=== PATIENT | female | born 1945 | race Caucasian/White ===

== ENCOUNTER → 2016-08-05 | Outpatient (CLI) | payer MEDICARE ==
[~2016-08-05] MED LIST: AMOXICILLIN 8751 TAB PO; ASPIRIN 81M81 MG/TA2 PO; CALCIUM 500500 M2 PO; CEFTIN 250250 MG/TAB PO; COUMADIN 5MG5 MG/TAB PO; EPA/GLA1 SGL PO; FERROUS SU325 MG/TAB PO; FISH OIL 1000MG1 CAP PO; FOLIC ACID 40400 MCG PO; GLUCOPHAGE850 MG/TAB PO; HYZAAR 25 MG-101 TAB PO; LOFIBRA160 MG PO; LOPRESSOR100 MG PO; NORCO 325 MG-51 TAB PO; NORCO 325 MG-7.1 TAB PO; PERCR 7.5 PO; ULTRAM 50MG TAB50 MG PO; VITAMIN B121000 MC2 SL; VITAMIN C500 MG PO; XANAX .25M0.25 MG/TA PO; ZOCOR 40MG40 MG PO; ZOFRAN 4MG T4 MG/TAB PO
== END ==
LOC: MC.RAD 10:20
DX: Z12.31 Encounter for screening mammogram for malignant neoplasm of breast (principal)

== ENCOUNTER → 2017-09-01 | Outpatient (CLI) | payer MEDICARE | LOC: MC.RAD 10:46 | DX: Z12.31 Encounter for screening mammogram for malignant neoplasm of breast (principal) ==

== ENCOUNTER → 2018-09-02 | Outpatient (CLI) | payer MEDICARE | LOC: MC.RAD 15:13 | DX: Z12.31 Encounter for screening mammogram for malignant neoplasm of breast (principal) ==

== ENCOUNTER 2019-05-31 08:49 | Day surgery (SDC) | payer MEDICARE ==
[~2019-05-31] VITALS: Ht 165.1 cm; Wt 90.9 kg
[~2019-05-31 08:49] MED LIST changes: +COUMADIN4 MG PO
[2019-05-31] MEDS ORDERED: XANAX .25M0.25 MG/TA PO (09:13)
[2019-05-31 09:42] VITALS: BP 158/93; PULSE 80; TEMP 97.3
[2019-05-31 10:50] VITALS: BP 162/86; PULSE 68; TEMP 97.1
--- NOTE | 2019-05-31 10:50 | NUR ---
Patient arrives back to [facility] alert, denies pain. Patient ambulates from cart to chair using wheel walker without any difficulties. Patient monitor applied, vitals stable. Patient's spouse at bedside.
--- NOTE | 2019-05-31 11:00 | NUR ---
Patient given juice and muffin at this time. Patient is able to swallow well and denies having any difficulties.
[2019-05-31 11:05] VITALS: BP 163/81; PULSE 57
[2019-05-31 11:20] VITALS: BP 164/85; PULSE 65
--- NOTE | 2019-05-31 11:30 | NUR ---
Patient tolerates juice and muffin without any nausea, denies pain.
[2019-05-31 11:35] VITALS: BP 148/62; PULSE 67
--- NOTE | 2019-05-31 11:50 | NUR ---
Patient up to restroom at this time via wheelwalker and without any complications or difficulties.
[2019-05-31] MEDS ORDERED: PRIL40 PO (12:09)
--- NOTE | 2019-05-31 12:20 | NUR ---
Dismissal instructions gone over with patient and patient's spouse. Both verbalize understanding and all questions answered.
--- NOTE | 2019-05-31 12:30 | NUR ---
Patient discharged to patient enterance via wheelchair to private vehicle her spouse is driving. Patient and spouse leave thanking staff for services.
[2019-05-31 13:18] VITALS: BP 162/86; PULSE 63
== END 2019-05-31 12:30 | disposition home or self-care (01) ==
LOC: SDCO 08:49
DX: K20.9 Esophagitis, unspecified (principal); K29.50 Unspecified chronic gastritis without bleeding; K25.9 Gastric ulcer, unspecified as acute or chronic, without hemorrhage or perforation; K22.4 Dyskinesia of esophagus; K57.10 Diverticulosis of small intestine without perforation or abscess without bleeding; Z86.010 Personal history of colon polyps; Z88.5 Allergy status to narcotic agent; Z88.2 Allergy status to sulfonamides; E78.00 Pure hypercholesterolemia, unspecified; I10 Essential (primary) hypertension; Z90.710 Acquired absence of both cervix and uterus; Z90.49 Acquired absence of other specified parts of digestive tract; Z95.5 Presence of coronary angioplasty implant and graft
CPT/HCPCS: J2250; J3010; J7030

== ENCOUNTER 2020-04-23 07:34 | Emergency (ER) | payer MEDICARE ==
[~2020-04-23] VITALS: Ht 165.1 cm; Wt 75.0 kg
[~2020-04-23 07:34] MED LIST changes: +PRIL40 PO
[2020-04-23 07:35] VITALS: TEMP 97.6
[2020-04-23 08:18] LABS: BASO % 0.3 % (0.0-2.0); EOS % 0.5 % (0-4.0); GRAN # 2.3 (1.4-6.5); GRAN % 60.3 % (42.2-75.2); HEMOGLOBIN 12.3 g/dl (12.5-16.0); LYMPH # 1.2 (1.2-3.4); LYMPH % 30.9 % (20.0-51.0); MEAN CELL VOLUME 84 fl (80.0-100.0); MEAN CORPUSCULAR HEMOGLOBIN 28 pg (27.0-31.0); MEAN CORPUSCULAR HGB CONC 34 g/dl (33.0-37.0); MONO # 0.3 (0.1-0.6); MONO % 7.2 % (1.7-9.3); PLATELET COUNT 165 K/mm3 (130-400); RED BLOOD COUNT 4.37 M/mm3 (4.10-5.30); REDCELL DISTRIBUTION WIDTH-CV 15.2 % (11.5-14.5)
[2020-04-23 08:19] LABS: HEMATOCRIT 36.5 % (37.0-47.0)
[2020-04-23 08:28] LABS: CALCIUM 9.5 mg/dL (8.4-10.2); CREATININE, serum 0.68 (0.52-1.25); POTASSIUM 3.2 mmol/L (3.4-5.0); TOTAL PROTEIN 7.1 gm/dL (6.4-8.2)
[2020-04-23 08:40] LABS: INR 6.8 (0.8-3.0); PROTHROMBIN TIME 77.4 SECONDS (9.7-12.8)
[2020-04-23 08:42] LABS: COLLECTION METHOD CLEAN CATCH
[2020-04-23 09:24] LABS: MUCOUS Present /lpf; PH 7 (5-8); SQUAMOUS EPITHELIAL 0-2 /hpf; URINE APPEARANCE Hazy; URINE BACTERIA Moderate /hpf; URINE BILIRUBIN Negative (NEGATIVE); URINE BLOOD 1+ (NEGATIVE); URINE COLOR Yellow; URINE GLUCOSE Negative (NEGATIVE); URINE KETONE Negative (NEGATIVE); URINE LEUKOCYTE ESTERASE 2+ (NEGATIVE); URINE NITRATE Negative (NEGATIVE); URINE PROTEIN(semi-quant) 2+ (NEGATIVE); URINE UROBILINOGEN Negative (NEGATIVE)
[2020-04-23 09:49] VITALS: BP 147/65; PULSE 86
== END 2020-04-23 10:00 | disposition short-term general hospital (02) ==
LOC: COL.ER 07:34
PROVIDERS: Emergency Medicine
DX: S06.6X0A Traumatic subarachnoid hemorrhage without loss of consciousness, initial encounter (principal); S80.02XA Contusion of left knee, initial encounter; S80.01XA Contusion of right knee, initial encounter; R40.2410 Glasgow coma scale score 13-15, unspecified time; I48.91 Unspecified atrial fibrillation; Z79.01 Long term (current) use of anticoagulants; Z88.2 Allergy status to sulfonamides; Z88.6 Allergy status to analgesic agent; Z79.82 Long term (current) use of aspirin; Z79.84 Long term (current) use of oral hypoglycemic drugs; W01.10XA Fall on same level from slipping, tripping and stumbling with subsequent striking against unspecified object, initial encounter; Y92.009 Unspecified place in unspecified non-institutional (private) residence as the place of occurrence of the external cause
CPT/HCPCS: C9132; J0696; J2060; J3430; J3480

== ENCOUNTER → 2020-05-08 | Outpatient (CLI) | payer MEDICARE | LOC: ZCOL.LAB 18:07 | DX: Z20.828 Contact with and (suspected) exposure to other viral communicable diseases (principal) ==

== ENCOUNTER → 2020-05-14 | Outpatient (CLI) | payer MEDICARE ==
[2020-05-15 02:05] LABS: COLLECTION METHOD CLEAN CATCH
[2020-05-15 02:16] LABS: MUCOUS Present /lpf; PH 5 (5-8); SQUAMOUS EPITHELIAL 0-2 /hpf; URINE APPEARANCE Clear; URINE BACTERIA None Seen /hpf; URINE BILIRUBIN Negative (NEGATIVE); URINE BLOOD Negative (NEGATIVE); URINE COLOR Yellow; URINE GLUCOSE Negative (NEGATIVE); URINE KETONE Negative (NEGATIVE); URINE LEUKOCYTE ESTERASE Negative (NEGATIVE); URINE NITRATE Negative (NEGATIVE); URINE PROTEIN(semi-quant) 1+ (NEGATIVE); URINE RBC 0-2 /hpf; URINE UROBILINOGEN Negative (NEGATIVE)
== END ==
LOC: ZCOL.LAB 21:01
PROVIDERS: Family Medicine
DX: R30.9 Painful micturition, unspecified (principal); R35.0 Frequency of micturition

== ENCOUNTER 2021-02-12 08:46 | Inpatient (IN) | payer MEDICARE ==
[~2021-02-12] VITALS: Ht 165.1 cm; Wt 78.8 kg
[2021-02-12 09:45] LABS: EOS % 0.8 % (0-4.0); GRAN # 1.7 (1.4-6.5); GRAN % 64.8 % (42.2-75.2); HEMOGLOBIN 11.7 g/dl (12.5-16.0); LYMPH # 0.7 (1.2-3.4); LYMPH % 25.9 % (20.0-51.0); MEAN CELL VOLUME 86 fl (80.0-100.0); MEAN CORPUSCULAR HEMOGLOBIN 28 pg (27.0-31.0); MEAN CORPUSCULAR HGB CONC 32 g/dl (33.0-37.0); MEAN PLATELET VOLUME 10.9 fl (7.4-10.4); MONO # 0.2 (0.1-0.6); MONO % 8.1 % (1.7-9.3); PLATELET COUNT 164 K/mm3 (130-400); RED BLOOD COUNT 4.24 M/mm3 (4.10-5.30)
[2021-02-12 09:46] LABS: HEMATOCRIT 36.6 % (37.0-47.0)
[2021-02-12 09:50] LABS: INR 1.1 (0.8-3.0); PROTHROMBIN TIME 12.7 SECONDS (9.7-12.8)
[2021-02-12 09:54] LABS: ALBUMIN 3.8 gm/dL (3.5-5.0); BILIRUBIN,TOTAL 0.6 mg/dL (0.0-1.0); CALCIUM 9.1 mg/dL (8.4-10.2); CREATININE, serum 0.86 (0.52-1.25); POTASSIUM 3.6 mmol/L (3.4-5.0); TOTAL PROTEIN 7.6 gm/dL (6.4-8.2)
[2021-02-12] MEDS ORDERED: NORVASC 10MG10 MG PO (12:16)
[2021-02-12] MEDS ORDERED: BENADRYL25 M2 PO (12:17)
[2021-02-12] MEDS ORDERED: LOFIBRA160 MG PO (12:18)
[2021-02-12] MEDS ORDERED: DULCOLAX STOOL100 MG PO (12:18)
[2021-02-12] MEDS ORDERED: COZAAR100 MG PO (12:19)
[2021-02-12] MEDS ORDERED: NATURAL IRON65 MG (12:19)
[2021-02-12] MEDS ORDERED: LASIX 40MG TABL40 MG PO (12:19)
[2021-02-12] MEDS ORDERED: GLUCOPHAGE850 MG/TAB PO (12:20)
[2021-02-12] MEDS ORDERED: LIPITOR 10MG10 MG PO (12:21)
[2021-02-12] MEDS ORDERED: TYLENOL 500MG500 MG PO (12:21)
[2021-02-12] MEDS ORDERED: B-12 500 MCG PO (12:21)
[2021-02-12] MEDS ORDERED: VITAMINC1000TA (12:22)
[2021-02-12 12:27] LABS: COLLECTION METHOD IN
[2021-02-12 12:40] LABS: MUCOUS Present /lpf; PH 6 (5-8); URINE APPEARANCE Hazy; URINE BACTERIA None Seen /hpf; URINE BILIRUBIN Negative (NEGATIVE); URINE BLOOD Negative (NEGATIVE); URINE COLOR Yellow; URINE GLUCOSE Negative (NEGATIVE); URINE KETONE Negative (NEGATIVE); URINE LEUKOCYTE ESTERASE 1+ (NEGATIVE); URINE NITRATE Negative (NEGATIVE); URINE PROTEIN(semi-quant) 1+ (NEGATIVE); URINE RBC 0-2 /hpf; URINE UROBILINOGEN Negative (NEGATIVE)
[2021-02-12 15:49] VITALS: BP 140/70; PULSE 73; TEMP 97.9
[2021-02-12 15:52] LABS: ANION GAP 13 mmol/L (7-16); BLOOD UREA NITROGEN 24 mg/dL (7-17); CALCIUM 9.3 mg/dL (8.4-10.2); CARBON DIOXIDE 22 mmol/L (22-30); CHLORIDE 103 mmol/L (98-107); CREATININE, serum 0.76 (0.52-1.25); GLUCOSE 99 mg/dL (74-106); POTASSIUM 4.2 mmol/L (3.4-5.0); SODIUM 139 mmol/L (137-145)
[2021-02-12 15:59] VITALS: BP 133/75; PULSE 89; TEMP 97.8
[2021-02-12 16:04] LABS: TROPONIN-I < 0.012 ng/mL (0.000-0.035)
[2021-02-12 17:34] VITALS: BP 139/72; PULSE 81; TEMP 97.8
[2021-02-12 19:41] LABS: CHOLESTEROL 92 mg/dL (120-200); CHOLESTEROL RISK RATIO 2.7; CREATINE KINASE 23 U/L (30-135); HDL CHOLESTEROL 34 mg/dL; LDL CHOLESTEROL 42 mg/dL; TRIGLYCERIDE 82 mg/dL
--- NOTE | 2021-02-12 20:29 | NUR ---
Resting quietly in room, daughter at bedside - updated on NPO status and failed bedside swallow test, updated on Speech therapy consult- verbalized understanding, reviewed medications with exhibitions curator DISTILLERY WORKER and failed swallow study - Hold po medications at this time. updated patient and family on plan of care. telemetry in use, weakness noted to L side, tolerating room air.
[2021-02-12 20:32] VITALS: BP 145/71; PULSE 76; TEMP 98.5
[2021-02-12 22:52] VITALS: BP 137/49; BP 137/57; PULSE 67; TEMP 98.7
--- NOTE | 2021-02-13 00:49 | NUR ---
Patient bsl 66- Call placed to Manjula Phillip See new orders, to clarify Manjula requested to hang D10W @ 50ml per hour and recheck blood sugar in 30 min and 1 hour and monitor. Updated patient on new orders.
[2021-02-13 03:12] VITALS: BP 141/65; PULSE 72; TEMP 98.2
--- NOTE | 2021-02-13 04:58 | NUR ---
Awake, alert, oriented x 4, able to verbalize needs, no facial droop noted, assisted with bedpan, denies pain, no acute distress noted.
--- NOTE | 2021-02-13 07:14 | NUR ---
Pt. progresing with plan of care. Bedside shift report complete. Pt. alert and able to answer questions. Pt. able to put both of her hearing aids in both ears. Pt. NPO. Pt. able to let this RN know she needs to use the bedpan. Will put pt. on bedpan now. All other questions answered.
[2021-02-13 07:24] LABS: BASO % 0.3 % (0.0-2.0); EOS % 0.6 % (0-4.0); GRAN # 1.4 (1.4-6.5); GRAN % 44.3 % (42.2-75.2); HEMOGLOBIN 11.1 g/dl (12.5-16.0); LYMPH # 1.4 (1.2-3.4); LYMPH % 44.6 % (20.0-51.0); MEAN CELL VOLUME 87 fl (80.0-100.0); MEAN CORPUSCULAR HEMOGLOBIN 28 pg (27.0-31.0); MEAN CORPUSCULAR HGB CONC 32 g/dl (33.0-37.0); MEAN PLATELET VOLUME 11.4 fl (7.4-10.4); MONO # 0.3 (0.1-0.6); MONO % 9.9 % (1.7-9.3); PLATELET COUNT 148 K/mm3 (130-400); RED BLOOD COUNT 3.99 M/mm3 (4.10-5.30); REDCELL DISTRIBUTION WIDTH-CV 16.1 % (11.5-14.5)
[2021-02-13 07:28] LABS: HEMATOCRIT 34.5 % (37.0-47.0)
[2021-02-13 08:40] VITALS: BP 128/52; PULSE 73; TEMP 99
[2021-02-13 11:46] VITALS: BP 141/84; PULSE 94; TEMP 97.6
--- NOTE | 2021-02-13 11:52 | NUR ---
SW's met with the patient and her daughter, Rosaura Cordero (ph#[phone]), to discuss discharge plan. The patient lives in [place] with her two sons: Shahid Hua and Anam. She reports needing some assistance with bathing and has a walker and showerchair. Rosaura states that she assists the patient with bathing. The patient's PCP is Dr. Sukhi Witt and she receives her medications [facility]. She reports no difficulties obtaining her meds. The patient does not have a DPOA-HC in EMR, but she states that she does have one completed and that it designates Rosaura. Rosaura reports that she has a copy at home and will bring it up to the hospital this afternoon. The patient's is and she has four children: Rosaura, Anam. Shahid Hua, and Nargis. PT is recommending SNF. SW discussed this with the patient and Rosaura. The patient and her daughter are in agreement to SNF and chose 1) [facility] 2) [facility]. The patient states that she has been to [facility] three times in the past. SW contacted and faxed a referral to Mariam at [facility]. SHAY consulted Mojgan with [facility]. The patient has a [facility] plan. SHAY contacted Luc at [facility] for prior-auth. Luc reports that they do not manage the patient's plan. SW notified Mariam at [facility]. Awaiting screens. *Discharge plan post-acute rehab*
--- NOTE | 2021-02-13 12:13 | NUR ---
Pt. progressing w/ plan of care. Pt able to eat and drink after speech came to see the patient. Pt. worked w/ therapy and HR was elevated. Pt. was not given metoprolol last night and given later today because she was NPO. Dr. Lacey notified face to face and aware. Social work in to see the patient. Daughter at bedside. Lunch has arrived, call light and belongings in reach.
--- NOTE | 2021-02-13 14:19 | NUR ---
Hospital supplied silver ointment applied to patient's stage II pressure sore. Pt. reports pain in her back, pt. placed on her side with good relief. Call light in reach, needs addressed.
[2021-02-13 17:23] VITALS: BP 140/68; PULSE 75; TEMP 98.6
--- NOTE | 2021-02-13 19:00 | NUR ---
Stroke education provided to patient and her daughter. Bedside shift report complete, oncoming RN Guadalupe notified of plan of care and updates on the patient have been provided. Call light in reach.
[2021-02-13 21:11] VITALS: BP 134/70; PULSE 81; TEMP 98.5
[2021-02-14] VITALS (7 sets, daily range): BP systolic 126–150; BP diastolic 56–78; PULSE 61–76; TEMP 97.7–97.9
--- NOTE | 2021-02-14 10:57 | NUR ---
Scheduled medication given. Shift assessment preformed. Patient able to lift and hold upper and lower extremities. Left hand space operations officer weaker than right. Mild dysarthia noted. Patient A&O. VSS. Stage 2 pressure ulcer noted on patient's sacral area, patient repositioned to right side. Patient denies any pain, discomfort, SOA, Chest pain, or further needs at this time. Call light in reach. Fall precautions in place.
--- NOTE | 2021-02-14 13:56 | NUR ---
Mariam, at [facility], reports that they do not have a bed available at this time. SHAY notified [facility] Director, Mojgna. SHAY met with the patient and her daughter, Rosaura, to update. The patient and her daughter report that they would be interested in [facility]. They state that they would probably prefer [facility], if they can take, for the more open visitation policy. SHAY contacted and faxed a referral to [facility]. Awaiting screen.
--- NOTE | 2021-02-14 18:35 | NUR ---
Patient had an uneventful day. Patient A&O. VSS. Patient denies any pain, discomfort, or further needs at this time. Call light in reach. Fall precautions in place. Patient waiting for placement.
[2021-02-15 04:04] VITALS: BP 130/60; PULSE 60; TEMP 97.8
--- NOTE | 2021-02-15 06:30 | NUR ---
Patient was upset during the night because she keeps having nightmares. She wanted to speak with the brain doctor about taking a medication to stop them. She has been voiding 2-3 times an hour. She voids about 200-300ml each time. She is not drinking an excessive amount of water. She refuse to lay on her left side. She did not sleep much during the night. No other changes at this time. Call light within reach. Bed alarm on.
[2021-02-15] MEDS ORDERED: PLAVIX 75MG TAB75 MG PO (08:49)
[2021-02-15] MEDS ORDERED: XANAX .25M0.25 MG/TA PO (08:51)
[2021-02-15] MEDS ORDERED: PROTONIX 40MG T40 MG PO (08:52)
[2021-02-15 09:11] VITALS: BP 149/77; PULSE 59; TEMP 98.1
--- NOTE | 2021-02-15 09:39 | NUR ---
Shift assessment preformed. Scheduled medication given. Patient A&O. Left tire shop manager weaker than right. Bed bath given, linens changed. Patient has been C/O nightmares over night and has experienced some while drifting off during this shift. Patient denies any pain, discomfort, SOA, or further needs at this time. Patient sitting up in bed eating breakfast. Daughter at the bedside. Call light in reach. Fall precautions in place.
[2021-02-15 12:00] VITALS: BP 142/80; PULSE 69
--- NOTE | 2021-02-15 13:09 | NUR ---
The hospitalist notified SHAY that he is ready to d/c the patient today. SHAY contacted Nima at [facility] to follow up on the referral. Nima reports that they are still reviewing the referral. SHAY informed [facility] how the patient is ready to d/c today. [facility] states that they will not have an answer until later this afternoon and if they are able to accept, they would not be able to take the patient until tomorrow. SHAY met with the patient and her daughter, Rosaura, to update. The patient and Rosaura are in agreement to going ahead and pursuing with [facility]. SHAY notified [facility] Director. Mojgan, [facility] Director, reports that the patient's insurance does not require and auth and they are able to accept the patient today. The patient is to discharge today, 02/15, to [facility]. No additional needs at this time.
[2021-02-15 14:27] VITALS: BP 149/77; PULSE 59; TEMP 98.1
--- NOTE | 2021-02-15 15:12 | NUR ---
Patient accepted to [facility]. IV DC'd, catheter intact, no signs of phlebitis. VSS. Report given to ZORAN Rocha. Patient denies any pain, discomfort, SOA, or further needs at this time. Patient transported over to [facility] via wheelchair by SIDRA Becker.
== END 2021-02-15 15:00 | DRG 66 ==
LOC: COL.ER 08:46 → MEDICAL 13:15
PROVIDERS: Emergency Medicine; ADMIT Internal Medicine
DX: I63.89 Other cerebral infarction (principal); E78.5 Hyperlipidemia, unspecified; I48.0 Paroxysmal atrial fibrillation; E66.9 Obesity, unspecified; M19.90 Unspecified osteoarthritis, unspecified site; M79.7 Fibromyalgia; I25.10 Atherosclerotic heart disease of native coronary artery without angina pectoris; E11.40 Type 2 diabetes mellitus with diabetic neuropathy, unspecified; Z87.820 Personal history of traumatic brain injury; Z90.710 Acquired absence of both cervix and uterus; Z90.89 Acquired absence of other organs; Z79.82 Long term (current) use of aspirin; Z90.49 Acquired absence of other specified parts of digestive tract; Z68.31 Body mass index [BMI] 31.0-31.9, adult
CPT/HCPCS: 99222-AI; 99232-AI; 99239; A6248; J2405; J7030; Q9967

== ENCOUNTER 2021-02-15 12:53 | Inpatient (IN) | payer MEDICARE ==
[~2021-02-15] VITALS: Ht 165.1 cm; Wt 68.2 kg
[~2021-02-15 12:53] MED LIST changes: +B-12 500 MCG PO; +BENADRYL25 M2 PO; +COZAAR100 MG PO; +DULCOLAX STOOL100 MG PO; +LASIX 40MG TABL40 MG PO; +LIPITOR 10MG10 MG PO; +NATURAL IRON65 MG; +NORVASC 10MG10 MG PO; +PLAVIX 75MG TAB75 MG PO; +PROTONIX 40MG T40 MG PO; +TYLENOL 500MG500 MG PO; +VITAMINC1000TA
[2021-02-15 17:10] VITALS: BP 148/86; PULSE 70; TEMP 98.1
[2021-02-15 19:32] VITALS: BP 156/73; PULSE 86; TEMP 97.7
--- NOTE | 2021-02-15 19:40 | NUR ---
PATIENT ALERT AND ORIENTED X4. ON NO APPARENT DISTRESS. ASSISTED PATIENT TO BR WITH WALKER AND STAND BY ASSIST, GAIT SLOW AND STEADY. NO SOB NOTED. PATIENT DENIES ANY DISCOMFORT AT THIS TIME. VSS. PM MEDICATION GIVEN. BED LOW AND LOCKED. BED ALARM ON. CALL LIGHT WITHIN REACH.
[2021-02-16 06:14] VITALS: BP 152/74; PULSE 65; TEMP 98.7
--- NOTE | 2021-02-16 06:30 | NUR ---
Report received from ZORAN Pham. Patient is resting comfortably in bed. Call light and bedside table are within reach. Will continue to monitor patient throughout shift.
--- NOTE | 2021-02-16 10:55 | NUR ---
Welcomed pt to Rehab unit. Explained the rehab process & goals. Complete SW assessment w/ pt. She is alert & oriented & able to communicate her needs & wants; however, is sometimes difficult to understand due to slurred speech. She does not wear dentures, wears readers, & wears bilateral hearing aides. She lives w/ her sons in a 1 story home w/ 6 step & a basement. However, the plan is for her to go home w/ her daughter, Rosaura. Her home is 1 story w/ 3 steps down & has bilateral handrails. The bathroom has a tub/shower combo w/ curtain but no grab bars. The toilet is taller & pt has a toilet seat riser. Pt reports she walks w/ a 4/2/walker & independent w/ her self care. She also reported doing her own cooking, some housekkeping, shopping, medication management & finance management. She has her own r/walker, 4/w/walker, shower chair, & toilet seat riser. Pharmacy: Reports she usually uses mail order but when she can't she uses [facility] & reports she has no concerns or issues w/ affording her medications. PCP: Dr. Farooq. She does have DPOA her daughter designated at [facility] but doesn't know if she brought the paperwork in or not. Pt had no questions/concerns at this time about her rehab stay. SW will continue to provide support & assist w/ d/c planning.
--- NOTE | 2021-02-16 14:56 | NUR ---
Patient has completed all therapies for the day and is relaxing in bed. Call light and bedside table are within reach.
[2021-02-16 17:53] VITALS: BP 152/68; PULSE 96; TEMP 97.2
[2021-02-16 19:39] VITALS: BP 154/80; PULSE 76; TEMP 97.6
--- NOTE | 2021-02-16 21:26 | NUR ---
Pt has been good. Daughter Visited today. Pain rated 0/10. Will continue to monitor.
[2021-02-17 08:00] VITALS: BP 110/72; PULSE 93; TEMP 98.4
[2021-02-17 12:00] VITALS: BP 126/72; PULSE 59; TEMP 98.4
[2021-02-17 16:00] VITALS: BP 129/57; PULSE 62; TEMP 98.4
[2021-02-17 19:29] VITALS: BP 143/79; PULSE 93; TEMP 98.1
--- NOTE | 2021-02-17 21:53 | NUR ---
Pt has been ok. Pain rated 0/10.Vss. Will continue to monitor.
[2021-02-18 04:59] VITALS: BP 137/71; PULSE 61; TEMP 98.5
--- NOTE | 2021-02-18 08:07 | NUR ---
Patient resting in recliner. Was a Touch assist with transferring from bed to BSC and then to recliner. Patient denies pain at this time. Bottom healed over at this time. No stage II observed or stage I. Will continue to monitor.
[2021-02-18 17:07] VITALS: BP 140/68; PULSE 72; TEMP 98.3
--- NOTE | 2021-02-18 18:35 | NUR ---
Patient's daughter stopped by to visit her mother and they asked this nurse if there could be a change to the evening seroquel due to it making her so drowsy in the morning. See new order for a 1/2 tab at HS. Will continue to monitor.
[2021-02-18 19:29] VITALS: BP 149/61; PULSE 89; TEMP 98.1
--- NOTE | 2021-02-18 21:32 | NUR ---
Pt has been in good spirit. Pain rated 0/10. Will continue to monitor.
[2021-02-19 05:09] VITALS: BP 140/67; PULSE 80; TEMP 98.1
--- NOTE | 2021-02-19 06:30 | NUR ---
Report received from ZORAN Pham. Patient is sleeping in bed. Call light and bedside table are within reach. Will continue to monitor patient throughout shift.
[2021-02-19 07:59] LABS: BASO % 0.2 % (0.0-2.0); EOS # 0.1 (0.0-0.7); EOS % 1.3 % (0-4.0); GRAN # 2.1 (1.4-6.5); GRAN % 46.3 % (42.2-75.2); HEMATOCRIT 41.8 % (37.0-47.0); HEMOGLOBIN 13.4 g/dl (12.5-16.0); LYMPH % 43.6 % (20.0-51.0); MEAN CELL VOLUME 88 fl (80.0-100.0); MEAN CORPUSCULAR HEMOGLOBIN 28 pg (27.0-31.0); MEAN CORPUSCULAR HGB CONC 32 g/dl (33.0-37.0); MEAN PLATELET VOLUME 10.9 fl (7.4-10.4); MONO # 0.4 (0.1-0.6); MONO % 8.2 % (1.7-9.3); PLATELET COUNT 202 K/mm3 (130-400); RED BLOOD COUNT 4.76 M/mm3 (4.10-5.30); REDCELL DISTRIBUTION WIDTH-CV 16.6 % (11.5-14.5)
[2021-02-19 08:43] LABS: CALCIUM 9.1 mg/dL (8.4-10.2); CREATININE, serum 0.93 (0.52-1.25); MAGNESIUM 1.7 mg/dL (1.6-2.3); POTASSIUM 4.3 mmol/L (3.4-5.0)
--- NOTE | 2021-02-19 13:20 | NUR ---
Admission QIM scores were reviewed by the team. Code of 4 chosen for oral hygiene was determined by team discussion to be the most usual performance before interventions for this patient during the assessment period. Code of 2 chosen for toilet hygiene was determined by team discussion to be the most usual performance for this patient during the assessment period. Code of 3 chosen for upper body dressing was determined by team discussion to be the most usual performance for this patient during the assessment period. Code of 2 chosen for lower body dressing was determined by team discussion to be the most usual performance for this patient during the assessment period. Code of 3 chosen for sit to lying was determined by team discussion to be the most usual performance for this patient during the assessment period. Code of 3 chosen for lying to sitting on side of bed was determined by team discussion to be the most usual performance for this patient during the assessment period. Code of 3 for sit to stand was determined by team discussion to be the most usual performance for this patient during the assessment period. Code of 6 for chair/bed to chair transfers was determined by team discussion to be the most usual performance for this patient during the assessment period.--Mojgan Zamarripa,
--- NOTE | 2021-02-19 16:23 | NUR ---
Patient has completed all therapies for the day and is resting in recliner. Patient denies pain but stated her neck hurts but did not want anything for it. Call light and bedside table are within reach.
[2021-02-19 18:04] VITALS: BP 148/65; PULSE 75; TEMP 98.7
[2021-02-20 05:08] VITALS: BP 122/65; PULSE 67; TEMP 97.4
--- NOTE | 2021-02-20 07:05 | NUR ---
Report received from ZORAN Harrell. Patient is relaxing in bed. Call light and bedside table are within reach. Will continue to monitor patient throughout shift.
[2021-02-20 18:25] VITALS: BP 150/83; PULSE 93; TEMP 98.2
--- NOTE | 2021-02-20 19:25 | NUR ---
RECEIVED CHANGE OF SHIFT REPORT FROM DAY SHIFT NURSE.
--- NOTE | 2021-02-20 20:30 | NUR ---
PATIENT REFUSES SCD. BED ALARM ON WHEN IN BED, CALL LIGHT WITHIN REACH. GAIT STEADY BUT WEAK AND SLOW GAIT, USES WALKER WITHOUT REPORTED PROBLEMS.
--- NOTE | 2021-02-21 01:00 | NUR ---
PATIENT SLEEPING, DOES NOT WAKE WHEN ROOM ENTERED BY STAFF. BED ALARM ON WHEN SLEEPING, CALL LIGHT WITHIN REACH. BREATHING NONLABORED AND EVEN.
[2021-02-21 04:32] VITALS: BP 147/63; PULSE 104; TEMP 98
--- NOTE | 2021-02-21 07:16 | NUR ---
CHANGE OF SHIFT REPORT GIVEN TO DAY SHIFT NURSE, RADHA MEEHAN.
--- NOTE | 2021-02-21 11:19 | NUR ---
Patient attended all morning therapies. She reported some bilateral shoulder pain and was given prn pain meds with good effect. Pepe currently working with ST at this time. Takes pills whole with water. Denies any questions. Will continue to monitor.
--- NOTE | 2021-02-21 12:42 | NUR ---
Patient currently resting in recliner, call light in reach and alarm set. She is eating her lunch and awaiting for her afternoon therapies. Denies questions at this time.
--- NOTE | 2021-02-21 15:11 | NUR ---
Reviewed team conference notes w/ pt. She stated she understood & agreed w/ current level of functioning. Informed her of d/c for 02/27/21, w/ recommendations of home health PT/OT. She told SW that she has had home health in the past & inquired who that was. She told SW [facility] & inquired if she would like to use them again, which she would. Told her the team would like to do a family meeting & that SW would be contacting her daughter, which she was fine w/. Pt had no questions or concerns at this time. Contact pt's daughter, Rosaura. Reviewed the team conference notes w/ her & she agreed that pt is doing well. Informed her of d/c for 02/27/21 w/ recommendation of home health PT/OT. Did inquire about whether the pt would be going to pt's home or daughter's home. She stated for now it would be pt's home until her home was ready. Verfied that pt's home has 6 steps to enter, which it does. Also inquired about doing a family meeting & she said she could do one on 02/26/21 at 1:00 pm. She did not have any questions or conerns at this time.
[2021-02-21 16:41] VITALS: BP 149/76; PULSE 76; TEMP 97.3
--- NOTE | 2021-02-21 17:40 | NUR ---
Patient resting in her recliner at this time eating her supper. She received her order for voltaron to help with pain management.
--- NOTE | 2021-02-21 18:49 | NUR ---
RECEIVED CHANGE OF SHIFT REPORT FROM DAY SHIFT NURSE. CALL LIGHT WITHIN REACH, BED ALARM ON WHEN IN BED.
--- NOTE | 2021-02-22 02:03 | NUR ---
PATIENT SLEEPING AND DOES NOT WAKE WHEN ROOM IS ENTERED BY STAFF ON ROUNDS AT THIS TIME. BED ALARM ON WITH CALL LIGHT WITHIN REACH. PATIENT HAS BEEN ABLE TO AMBULATE TO AND FROM BATHROOM WITH SBA WITH GAIT BELT/WALKER ASSISTANCE. REQUIRES SOME ASSIST WITH REMOVAL OF UNDERPANTS/PANTS WHEN SITTING DURING TOILETING WHEN CHANGE SOILED GARMENTS/ADULT PULLUPS. SPEECH CLEAR AND APPROPRIATE DURING CONVERSATION WITH THIS STAFF NURSE.
[2021-02-22 05:41] VITALS: BP 140/59; PULSE 68; TEMP 97.2
--- NOTE | 2021-02-22 06:54 | NUR ---
CHANGE OF SHIFT REPORT GIVEN TO DAY SHIFT NURSE, RADHA MEEHAN.
--- NOTE | 2021-02-22 11:17 | NUR ---
Received call from pt's daughter, Rosaura, asking if the family meeting could be changed to tomorrow, 02/23/21 & if pt's other daughter, Nargis, could be present. Received permission from nurse load manager for pt's daughter, Nargis, to come in for the family meeting. Called Rosaura back & informed her that Nargis can come in tomorrow for the family meeting & scheduled it for 1:30.
--- NOTE | 2021-02-22 11:26 | NUR ---
Patient is currently attending Group Therapy at this time. She was a one person touch assist from sit to stand this morning and was touch assist with ambulating with walker to and from the bathroom. Patient tolerated diet well this morning. Denies pain reporting that the Voltaren that she used on shoulders yesterday was very helpful. Will continue to monitor.
[2021-02-22 16:01] VITALS: BP 116/67; PULSE 59; TEMP 97.8
--- NOTE | 2021-02-22 18:54 | NUR ---
RECEIVED CHANGE OF SHIFT REPORT FROM DAY SHIFT NURSE. PATIENT RESTING IN BED WITH BED ALARM ON WITH CALL LIGHT WITHIN REACH. DAUGHTER AT BEDSIDE AT TIME OF REPORT.
--- NOTE | 2021-02-22 19:24 | NUR ---
Patient attended her afternoon therapies today. Tolerated diet well. Was a set up for putting her night gown on tonight. She was able to wipe herself and pull pants up and down with only touch assist. She denied need for pain meds through day. Patient currently resting in bed, call light in reach and bed alarm set. Reported off to night nurse.
--- NOTE | 2021-02-22 20:33 | NUR ---
REPORTS SOME BLE STIFFNESS WITH WALKING, AGREED TO TAKE PRN TYLENOL, REFUSED OFFER OF VOLTAREN GEL FOR SHOULDERS AT THIS TIME, REMINDED PATIENT TO ASK FOR GEL IF SHE STARTS TO HAVE SHOULDER DISCOMFORT DURING THE NIGHT. BED ALARM ON WHEN BACK IN BED WITH CALL LIGHT WITHIN REACH. DENIES CHEST PAIN,SOA OR INCREASED BLE NUMBNESS (HAS H.O. CHRONIC NEUROPATHY TO BLE).
[2021-02-23 03:56] VITALS: BP 131/61; PULSE 53; TEMP 98
--- NOTE | 2021-02-23 07:10 | NUR ---
CHANGE OF SHIFT REPORT GIVEN TO DAY SHIFT NURSE, CLAUDIA MEEHAN.
--- NOTE | 2021-02-23 13:40 | NUR ---
Conducted family meeting w/ pt, daughter (Nargis) & via phone daughter (Rosaura). Also present was the PT, OT, & SW/news library director. The team talked about how pt has been doing & any concerns. The family asked questions, which the team answered for them. Informed them of d/c still for 02/27/21, w/ recommendation for home health PT/OT. They were fine w/ the plan.
[2021-02-23 16:10] VITALS: BP 146/78; PULSE 82; TEMP 97.6
--- NOTE | 2021-02-23 21:00 | NUR ---
PT RESTING IN BED. A&OX4. PLEASANT AND COPPERATIVE. DENIES PAIN AT THIS TIME. PT VERBALIZES HX URINARY URGENCY FOR YEARS. HAS STRESS INCONTINENCE. WEARS BRIEFS WITH PADS. NO NEEDS AT THIS TIME. CALL LIGHT IN REACH. BED ALARM SET.
[2021-02-24 04:49] VITALS: BP 152/96; PULSE 78; TEMP 97.4
--- NOTE | 2021-02-24 05:33 | NUR ---
QUIET UNEVENTFUL NIGHT. UP TO BR SEVERAL TIMES IN HS. SOME INCONTINECE IN BRIEFS THIS AM.
--- NOTE | 2021-02-24 07:04 | NUR ---
Report received from ZORAN Marino. Patient is sleeping in bed. Call light and bedside table are within reach. Will continue to monitor patient throughout shift.
--- NOTE | 2021-02-24 10:20 | NUR ---
Patient did not participate in group therapy because only four patients could participate. SIDRA Becker walked the patient in the hallways. Patient is resting comfortably in recliner. Call light and bedside table are within reach.
--- NOTE | 2021-02-24 16:30 | NUR ---
Patient's daughter is visiting.
[2021-02-24 18:00] VITALS: BP 134/83; PULSE 96; TEMP 97.4
--- NOTE | 2021-02-24 20:46 | NUR ---
PT RESTING IN BED. MOD I IN ROOM. ENC PT TO CALL FOR ASSIST IF NEEDED FOR SAFETY. PT AGREED. CALL LIGHT IN REACH.
[2021-02-25 04:50] VITALS: BP 124/56; PULSE 76; TEMP 97.3
--- NOTE | 2021-02-25 06:39 | NUR ---
PT TOLERATED MOD I SAFELY THIS SHIFT. UNEVENTFUL NIGHT.
--- NOTE | 2021-02-25 06:48 | NUR ---
Report received from ZORAN Marino. Patient is sleeping in bed. Call light and bedside table are within reach. Will continue to monitor patient throughout shift.
--- NOTE | 2021-02-25 09:15 | NUR ---
Patient went down to [place] to visit with his and son.
--- NOTE | 2021-02-25 10:40 | NUR ---
Went into patient's room to check on her and she was in the bathroom changing her clothes. Patient stated she had an incident of incontinence. Patient cleaned herself and changed her clothes.
--- NOTE | 2021-02-25 11:20 | NUR ---
Patient walker < 150 feet with walker, gait belt and with SIDRA Becker. Patient is currently back in room and sitting in recliner. Call light and bedside table are within reach.
--- NOTE | 2021-02-25 17:04 | NUR ---
Patient's daughter is visiting with her
[2021-02-25 17:12] VITALS: BP 135/85; PULSE 64; TEMP 97.6
--- NOTE | 2021-02-25 17:59 | NUR ---
Patient's daughter has left for the evening
--- NOTE | 2021-02-25 19:41 | NUR ---
PT RESTING IN BED. MOD I IN ROOM. PT REPORTS DOING WELL WITH THIS. NO CONCERNS OR COMPLAINTS. CALL LIGHT IN REACH.
[2021-02-26 05:04] VITALS: BP 136/77; PULSE 67; TEMP 98.5
--- NOTE | 2021-02-26 08:00 | NUR ---
Patient sitting up in bed eating a cookie. A&Ox4. VSS. Denies pain and discomfort. Doesnt want to take scheduled am medication yet. States that she feels a little nauseous and doesnt want the medication to come back up. Patient states that she will call the nurse when ready. No further needs expressed. Call light within reach
--- NOTE | 2021-02-26 11:00 | NUR ---
Contacted [facility] & spoke w/ Donovan. Referral made for home health PT/OT/nursing w/ d/c on 02/27/21. Faxed referral information.
[2021-02-26] MEDS ORDERED: VOLTAREN GEL 1%1 TU TP (13:51)
[2021-02-26] MEDS ORDERED: PLAVIX 75MG TAB75 MG PO (13:54)
[2021-02-26] MEDS ORDERED: ASPIRIN 81M81 MG/TA2 PO (13:56)
--- NOTE | 2021-02-26 14:07 | NUR ---
Visited w/ pt about d/c for tomorrow, 02/27/21. She stated she is ready to go home. Inquired how she has been doing w/ being Mod I in her room & she stated she has had no problems. Told her that [facility] was contacted & will be picking her up for services. She did not have any other questions or concerns at this time.
[2021-02-26 16:06] VITALS: BP 134/68; PULSE 74; TEMP 97.6
--- NOTE | 2021-02-26 17:57 | NUR ---
Patient had an uneventful day. Independent in the room and tolerated therapy without difficulty. A&Ox3. VSS. Denies pain and discomfort. Indpendent with feeds. No further needs expressed. Call light within reach
--- NOTE | 2021-02-26 18:54 | NUR ---
RECEIVED CHANGE OF SHIFT REPORT FROM DAY SHIFT NURSE. PATIENT UP AD BRAD IN ROOM WITH NO REPORTED CONCERNS OR PROBLEMS, NO EXIT ALARM IS NEEDED. PATIENT DENIES ANY NEEDS AT THIS TIME.
--- NOTE | 2021-02-27 00:30 | NUR ---
PATIENT UP IN ROOM AD BRAD WITH NO REPORTED PROBLEMS OR CONCERNS. USES WALKER WHEN UP WITH NO DIFFICULTY. CALL LIGHT WITHIN REACH. DENIES ANY DISCOMFORT OR NEEDS AT THIS TIME, SLEEPING AND DOES NOT WAKE WHEN ROOM ENTERED BY STAFF ON ROUNDS.
[2021-02-27 05:26] VITALS: BP 133/68; PULSE 56; TEMP 97.2
--- NOTE | 2021-02-27 07:18 | NUR ---
CHANGE OF SHIFT REPORT GIVEN TO DAY SHIFT NURSE, RADHA MEEHAN.
--- NOTE | 2021-02-27 09:19 | NUR ---
Patients daughter will be picking up patient at 2 PM today. She is independent in her room with her walker. Denies pain. Tolerated diet well. Will continue to monitor.
--- NOTE | 2021-02-27 09:32 | NUR ---
Visited w/ pt. She did not have any questions or concerns about her d/c. She did state that her daughter, Nargis, is not able to come get her until 2:00 pm. Faxed the home health orders & D/C summary to [facility].
--- NOTE | 2021-02-27 14:50 | NUR ---
Patient Health Summary, Discharge Summary, and Home Meds printed and reviewed with patient. Stressed importance of follow up appointments. Called prescription in for Pantoprazole to pharmacy of choice. Belongings gathered by RN/Jossie including phone, head athletic trainer/strength coach, voltaran ointment, dirty clothes from hamper and other misc. personal items. Patient transported via wheelchair by RN/Jossie and seatbelted for ride home with daughter. Patient and daughter denied questions.
== END 2021-02-27 14:35 | disposition home health service (06) | DRG 57 ==
PROVIDERS: ADMIT Internal Medicine
DX: I69.351 Hemiplegia and hemiparesis following cerebral infarction affecting right dominant side (principal); R44.3 Hallucinations, unspecified; I48.0 Paroxysmal atrial fibrillation; E11.42 Type 2 diabetes mellitus with diabetic polyneuropathy; I10 Essential (primary) hypertension; I25.10 Atherosclerotic heart disease of native coronary artery without angina pectoris; M79.7 Fibromyalgia; M19.90 Unspecified osteoarthritis, unspecified site; G47.00 Insomnia, unspecified; E66.9 Obesity, unspecified; E78.5 Hyperlipidemia, unspecified; Z79.82 Long term (current) use of aspirin; Z79.84 Long term (current) use of oral hypoglycemic drugs; Z95.5 Presence of coronary angioplasty implant and graft; Z90.710 Acquired absence of both cervix and uterus; Z88.2 Allergy status to sulfonamides; Z88.6 Allergy status to analgesic agent
CPT/HCPCS: 99222-AI; 99231-AI; 99232-AI; 99239; J1815

== ENCOUNTER 2021-04-17 16:35 | Observation (INO) | payer MEDICARE ==
[~2021-04-17] VITALS: Ht 165.1 cm; Wt 80.5 kg
[~2021-04-17 16:35] MED LIST changes: +VOLTAREN GEL 1%1 TU TP
[2021-04-17 18:15] LABS: BASO % 0.3 % (0.0-2.0); EOS % 1.2 % (0-4.0); GRAN # 1.6 K/mm3 (1.4-6.5); GRAN % 46.9 % (42.2-75.2); HEMATOCRIT 42.3 % (37.0-47.0); HEMOGLOBIN 13.5 g/dl (12.5-16.0); LYMPH # 1.4 K/mm3 (1.2-3.4); LYMPH % 42.3 % (20.0-51.0); MEAN CELL VOLUME 89 fl (80.0-100.0); MEAN CORPUSCULAR HEMOGLOBIN 29 pg (27.0-31.0); MEAN CORPUSCULAR HGB CONC 32 g/dl (33.0-37.0); MEAN PLATELET VOLUME 11.5 fl (7.4-10.4); MONO # 0.3 K/mm3 (0.1-0.6); PLATELET COUNT 174 K/mm3 (130-400); RED BLOOD COUNT 4.73 M/mm3 (4.10-5.30); REDCELL DISTRIBUTION WIDTH-CV 17.7 % (11.5-14.5)
[2021-04-17 18:19] LABS: INR 1.2 (0.8-3.0); PROTHROMBIN TIME 13.2 SECONDS (9.7-12.8)
[2021-04-17 18:48] LABS: ALBUMIN 3.2 gm/dL (3.4-4.8); BILIRUBIN,TOTAL 1.1 mg/dL (0.2-1.2); C-REACTIVE PROTEIN 0.6 mg/dL (0.00-0.50); CALCIUM 9.3 mg/dL (8.4-10.2); CREATININE, serum 0.96 mg/dL (0.57-1.11); TOTAL PROTEIN 7.3 gm/dL (6.2-8.1)
[2021-04-17 18:53] LABS: TROPONIN-I 0.03 ng/mL (0.00-0.033)
[2021-04-17 19:08] LABS: COLLECTION METHOD CLEAN CATCH
[2021-04-17 19:20] LABS: MUCOUS Present /lpf; PH 5 (5-8); SQUAMOUS EPITHELIAL None Seen /hpf; URINE APPEARANCE Clear; URINE BACTERIA None Seen /hpf; URINE BILIRUBIN Negative (NEGATIVE); URINE BLOOD 1+ (NEGATIVE); URINE COLOR Yellow; URINE GLUCOSE Negative (NEGATIVE); URINE KETONE Negative (NEGATIVE); URINE LEUKOCYTE ESTERASE Negative (NEGATIVE); URINE NITRATE Negative (NEGATIVE); URINE PROTEIN(semi-quant) 3+ (NEGATIVE); URINE RBC >50 /hpf; URINE UROBILINOGEN >=4.0 mg/dL (NEGATIVE)
[2021-04-17] MEDS ORDERED: GLUCOPHAGE500 MG/TAB PO (20:18)
[2021-04-17] MEDS ORDERED: COZAAR 50MG50 MG/TAB PO (20:18)
[2021-04-17 23:44] VITALS: BP 145/80; PULSE 55; TEMP 98.4
--- NOTE | 2021-04-18 01:02 | NUR ---
PT ARRIVED TO MEDICAL FLOOR AT 2325 VIA STRETCHER BY ED STAFF TO ROOM 319, PT A/OX4, VSS, 02 ROOM AIR WITH SATURATIONS OVER 95 PERCENT. PT DENIES PAIN BUT REPORTS NEUROPATHIC S/S TO BLE. PHYSICAL ASSESMENT COMPLETE, MED REC COMPLETE AND PT ENCOURAGED TO HAVE DAUGHTER BRING MEDICATION LIST TO MAKE COPY AND INPUT IN CHART, PT VERBALIZES UNDERSTANDING. PT ORIENTED TO FLOOR AND HOSPITAL POLICY. PT EXPRESSES NO ADDITIONAL NEEDS AT THIS TIME. CALL LIGHT WITHIN REACH.
[2021-04-18 04:34] VITALS: BP 147/89; PULSE 83; TEMP 98.3
--- NOTE | 2021-04-18 06:06 | NUR ---
PT HAD UNEVENTFUL NIGHT, PT DENIES SOA,PAIN,N,V, REPORTS DIAHHREA BUT HAS HAD NO BM'S. PUREWICK IN PLACE. SCD'S ON. POC DISCUSSED WITH PT. PT VERBALIZES UNDERSTANDING. CALL LIGHT WITHIN REACH.
--- NOTE | 2021-04-18 06:41 | NUR ---
CARDIOLOGY CONSULT TO DR. WILLIS CONTACTED AT 0640 COMPLETE.
--- NOTE | 2021-04-18 07:00 | NUR ---
Report with ZORAN Hudson. Pt resting in bed, awake and alert with student nurse and lab at bedside. Call light in reach.
[2021-04-18 07:30] VITALS: BP 143/73; PULSE 50; TEMP 97.5
[2021-04-18 07:43] LABS: BASO % 0.3 % (0.0-2.0); EOS # 0.1 K/mm3 (0.0-0.7); EOS % 1.6 % (0-4.0); GRAN # 1.8 K/mm3 (1.4-6.5); GRAN % 50.2 % (42.2-75.2); LYMPH # 1.4 K/mm3 (1.2-3.4); LYMPH % 38.6 % (20.0-51.0); MEAN CELL VOLUME 88 fl (80.0-100.0); MEAN CORPUSCULAR HEMOGLOBIN 29 pg (27.0-31.0); MEAN CORPUSCULAR HGB CONC 33 g/dl (33.0-37.0); MEAN PLATELET VOLUME 11.1 fl (7.4-10.4); MONO # 0.3 K/mm3 (0.1-0.6); PLATELET COUNT 156 K/mm3 (130-400); RED BLOOD COUNT 4.54 M/mm3 (4.10-5.30); REDCELL DISTRIBUTION WIDTH-CV 17.3 % (11.5-14.5)
[2021-04-18 07:58] LABS: CALCIUM 9.1 mg/dL (8.4-10.2); CREATININE, serum 0.85 mg/dL (0.57-1.11); POTASSIUM 3.5 mmol/L (3.5-4.5)
[2021-04-18 08:07] LABS: TROPONIN-I 6 HR POST INITIAL 0.035 ng/mL (0.00-0.033)
[2021-04-18] MEDS ORDERED: VOLTAREN GEL 1%1 TU TP (09:56)
[2021-04-18] MEDS ORDERED: GLUCOPHAGE850 MG/TAB PO (09:58)
[2021-04-18] MEDS ORDERED: LOTRISONE 0.05%1 CRE TOP (10:00)
--- NOTE | 2021-04-18 10:25 | NUR ---
Initial visit; Patient thanked Computer Training Specialist for looking in on her and offering spiritual care. Patient requested that Computer Training Specialist keep her in her prayers. Computer Training Specialist will follow up while Doris is a patient here.
--- NOTE | 2021-04-18 10:57 | NUR ---
Assessment by student nurse reviewed and agreed by this nurse.
[2021-04-18 11:21] VITALS: BP 142/65; PULSE 82; TEMP 97.6
--- NOTE | 2021-04-18 15:06 | NUR ---
Computer Service Technician met with patient at bedside to discuss discharge planning. Patient states she lives in [place] and 2 of her sons live with her. Patient states she is in the process of selling her house since it is becoming too much for her. Per patient, she is in the process of moving in with her daughter, Rosaura ([phone]) who lives in [place]. Her daughter is also listed as her MPOA according to the patient, although it is not on file. PCP is Dr. Sukhi Witt and she receives her medications through mail order and through [facility]. She uses a walker for mobility and she also has a shower chair. Patient states that she has been getting a home health aide to help her out occasionally at her home but she isn't sure which agency. SW will continue to follow for patient needs. *D/C Plan: Skilled rehab
[2021-04-18 17:03] VITALS: BP 148/77; PULSE 78; TEMP 97.7
--- NOTE | 2021-04-18 18:00 | NUR ---
Pt sitting up in bed, eating dinner, requesting blanket and tissues, otherwise uneventful shift. Purewick in place, no s/s of complications. Call light in reach.
[2021-04-18 20:22] VITALS: BP 149/88; PULSE 56; TEMP 98
[2021-04-18 20:28] VITALS: PULSE 101
[2021-04-19] VITALS: BP 141/94; PULSE 96; TEMP 97.7
[2021-04-19 05:05] VITALS: BP 120/93; PULSE 53; TEMP 98.4
--- NOTE | 2021-04-19 05:24 | NUR ---
Pt had trouble sleeping overnight, Medication administered as ordered to assist with reported anxiety. Purewick remains in place, draining and patent. Pt I&O noted and recorded. Pt denies SOA,n,v,d. All needs met this night. Call light within reach.
[2021-04-19 06:45] LABS: BASO % 0.2 % (0.0-2.0); EOS # 0.1 K/mm3 (0.0-0.7); EOS % 1.5 % (0-4.0); GRAN # 2.5 K/mm3 (1.4-6.5); GRAN % 52.8 % (42.2-75.2); HEMATOCRIT 39.5 % (37.0-47.0); HEMOGLOBIN 12.5 g/dl (12.5-16.0); LYMPH # 1.8 K/mm3 (1.2-3.4); LYMPH % 37.2 % (20.0-51.0); MEAN CELL VOLUME 90 fl (80.0-100.0); MEAN CORPUSCULAR HEMOGLOBIN 29 pg (27.0-31.0); MEAN CORPUSCULAR HGB CONC 32 g/dl (33.0-37.0); MEAN PLATELET VOLUME 11.2 fl (7.4-10.4); MONO # 0.4 K/mm3 (0.1-0.6); MONO % 8.1 % (1.7-9.3); PLATELET COUNT 143 K/mm3 (130-400); RED BLOOD COUNT 4.37 M/mm3 (4.10-5.30); REDCELL DISTRIBUTION WIDTH-CV 17.5 % (11.5-14.5)
[2021-04-19 07:02] LABS: CALCIUM 8.7 mg/dL (8.4-10.2); CREATININE, serum 0.98 mg/dL (0.57-1.11); MAGNESIUM 1.4 mg/dL (1.6-2.6); POTASSIUM 3.4 mmol/L (3.5-4.5)
[2021-04-19 07:31] VITALS: BP 124/82; PULSE 59; TEMP 97.8
[2021-04-19] MEDS ORDERED: LASIX 20MG TABL20 MG PO (09:32)
[2021-04-19] MEDS ORDERED: K-DUR 10 MEQ T10 MEQ PO (09:33)
--- NOTE | 2021-04-19 13:36 | NUR ---
Follow-up visit; Patient thanked Title I Paraprofessional for looking in on her again and hopes to be discharged soon. Title I Paraprofessional offered Doris God's blessings.
[2021-04-19 13:40] VITALS: BP 133/80; PULSE 84; TEMP 98
--- NOTE | 2021-04-19 14:02 | NUR ---
Primary nurse was assisted with [phone] patient care by [facility] student Amber Hyde and [facility] instructor Lynda Benito MSN, RN
[2021-04-19 15:45] VITALS: BP 128/72; PULSE 83; TEMP 98.2
--- NOTE | 2021-04-19 16:44 | NUR ---
Manager Package reviewed PT/OT recommendation for Home with Home Health. SW contacted patient's daughter, Rosaura to review discharge plan. Rosaura advised that patient uses [facility]. Rosaura reports that patient is in the process of moving in with her, but right now just stays overnight with her. Rosaura is agreeable with discharge plan to home with home health. SHAY contacted Angela at [facility] and faxed referral/discharge orders. Discharge: Home with [facility]
--- NOTE | 2021-04-19 18:27 | NUR ---
Patient discharged and was escorted out by Oskar, via wheelchair. IV was discontinued and purewick was removed. Patient did not have any complaints upon discharge.
== END 2021-04-19 18:30 | disposition home health service (06) ==
LOC: COL.ER 16:35 → MEDICAL 21:41
PROVIDERS: Nurse Practitioner Primary Care; Personal Emergency Response Attendant; Physician Assistant; Student in an Organized Health Care Education/Training Program; ADMIT Student in an Organized Health Care Education/Training Program
DX: J90 Pleural effusion, not elsewhere classified (principal); R63.5 Abnormal weight gain; I08.1 Rheumatic disorders of both mitral and tricuspid valves; E83.42 Hypomagnesemia; I48.0 Paroxysmal atrial fibrillation; I10 Essential (primary) hypertension; E11.40 Type 2 diabetes mellitus with diabetic neuropathy, unspecified; E78.5 Hyperlipidemia, unspecified; K21.9 Gastro-esophageal reflux disease without esophagitis; I27.20 Pulmonary hypertension, unspecified; F41.9 Anxiety disorder, unspecified; Z90.710 Acquired absence of both cervix and uterus; Z20.822 Contact with and (suspected) exposure to COVID-19; Z79.02 Long term (current) use of antithrombotics/antiplatelets; Z90.89 Acquired absence of other organs; Z86.73 Personal history of transient ischemic attack (TIA), and cerebral infarction without residual deficits; Z90.49 Acquired absence of other specified parts of digestive tract; Z79.82 Long term (current) use of aspirin; Z79.84 Long term (current) use of oral hypoglycemic drugs; Z79.899 Other long term (current) drug therapy
CPT/HCPCS: 99232-AI; 99239; G0378; J1940; J3475

== ENCOUNTER 2021-04-28 17:34 | Inpatient (IN) | payer MEDICARE ==
[~2021-04-28] VITALS: Ht 165.1 cm; Wt 76.9 kg
[~2021-04-28 17:34] MED LIST changes: +COZAAR 50MG50 MG/TAB PO; +GLUCOPHAGE500 MG/TAB PO; +K-DUR 10 MEQ T10 MEQ PO; +LASIX 20MG TABL20 MG PO; +LOTRISONE 0.05%1 CRE TOP
[2021-04-28 18:04] LABS: BASO % 0.2 % (0.0-2.0); EOS % 0.1 % (0-4.0); GRAN # 7.4 K/mm3 (1.4-6.5); GRAN % 75.1 % (42.2-75.2); HEMATOCRIT 43.4 % (37.0-47.0); HEMOGLOBIN 14.1 g/dl (12.5-16.0); LYMPH # 1.8 K/mm3 (1.2-3.4); LYMPH % 17.9 % (20.0-51.0); MEAN CELL VOLUME 88 fl (80.0-100.0); MEAN CORPUSCULAR HEMOGLOBIN 29 pg (27.0-31.0); MEAN CORPUSCULAR HGB CONC 33 g/dl (33.0-37.0); MEAN PLATELET VOLUME 11.5 fl (7.4-10.4); MONO # 0.6 K/mm3 (0.1-0.6); MONO % 6.3 % (1.7-9.3); PLATELET COUNT 213 K/mm3 (130-400); RED BLOOD COUNT 4.95 M/mm3 (4.10-5.30); REDCELL DISTRIBUTION WIDTH-CV 17.4 % (11.5-14.5)
[2021-04-28 18:22] LABS: ALBUMIN 3.4 gm/dL (3.4-4.8); BILIRUBIN,TOTAL 1.9 mg/dL (0.2-1.2); CALCIUM 9.7 mg/dL (8.4-10.2); CREATININE, serum 1.3 mg/dL (0.57-1.11); POTASSIUM 4.1 mmol/L (3.5-4.5); TOTAL PROTEIN 8.2 gm/dL (6.2-8.1)
[2021-04-28 18:29] LABS: TROPONIN-I 0.048 ng/mL (0.00-0.033)
[2021-04-28 18:47] LABS: INR 1.2 (0.8-3.0); PROTHROMBIN TIME 13.8 SECONDS (9.7-12.8)
[2021-04-28 18:54] LABS: ARTERIAL BLD GAS O2 SATURATION 94.7 % (92-100); ARTERIAL BLD GAS TCO2 CT 25.6; ARTERIAL BLOOD GAS BASE EXCESS 2.2 (-2-2); ARTERIAL BLOOD GAS HCO3 24.6 meq/L (22-26); ARTERIAL BLOOD GAS PCO2 31.8 mmHg (35-45); ARTERIAL BLOOD GAS PO2 70.9 mmHg (80-100); ARTERIAL BLOOD GAS pH 7.51 (7.35-7.45)
[2021-04-28] MEDS ORDERED: K-DUR20 MEQ PO (22:35)
[2021-04-28] MEDS ORDERED: XANAX .25M0.25 MG/TA PO (22:35)
[2021-04-28] MEDS ORDERED: LASIX 40MG TABL40 MG PO (22:36)
[2021-04-28] MEDS ORDERED: PROTONIX 40MG T40 MG PO (22:37)
[2021-04-28 23:54] VITALS: BP 126/79; PULSE 105; TEMP 98.4
[2021-04-29 02:09] LABS: COLLECTION METHOD CATHETER
[2021-04-29 02:15] LABS: MUCOUS Present /lpf; PH 5 (5-8); SQUAMOUS EPITHELIAL 0-2 /hpf; URINE APPEARANCE Clear; URINE BACTERIA Rare /hpf; URINE BILIRUBIN Negative (NEGATIVE); URINE BLOOD Negative (NEGATIVE); URINE COLOR Yellow; URINE GLUCOSE Negative (NEGATIVE); URINE KETONE Negative (NEGATIVE); URINE LEUKOCYTE ESTERASE Negative (NEGATIVE); URINE NITRATE Negative (NEGATIVE); URINE PROTEIN(semi-quant) Negative (NEGATIVE); URINE RBC 0-2 /hpf; URINE UROBILINOGEN Negative (NEGATIVE)
[2021-04-29 03:40] LABS: BASO % 0.2 % (0.0-2.0); GRAN # 9.1 K/mm3 (1.4-6.5); GRAN % 84.7 % (42.2-75.2); HEMATOCRIT 37.9 % (37.0-47.0); HEMOGLOBIN 12.6 g/dl (12.5-16.0); LYMPH # 0.9 K/mm3 (1.2-3.4); LYMPH % 8.7 % (20.0-51.0); MEAN CELL VOLUME 86 fl (80.0-100.0); MEAN CORPUSCULAR HEMOGLOBIN 29 pg (27.0-31.0); MEAN CORPUSCULAR HGB CONC 33 g/dl (33.0-37.0); MEAN PLATELET VOLUME 11.7 fl (7.4-10.4); MONO # 0.6 K/mm3 (0.1-0.6); MONO % 5.7 % (1.7-9.3); PLATELET COUNT 171 K/mm3 (130-400)
[2021-04-29 03:58] LABS: CALCIUM 9.2 mg/dL (8.4-10.2); CREATININE, serum 1.05 mg/dL (0.57-1.11); MAGNESIUM 1.5 mg/dL (1.6-2.6); PHOSPHOROUS 2.8 mg/dL (2.3-4.7)
[2021-04-29 04:16] VITALS: BP 114/54; PULSE 92; TEMP 97.7
[2021-04-29 04:19] LABS: THYROID STIMULATING HORMONE 0.858 uIU/mL (0.350-4.940)
[2021-04-29 04:32] LABS: TROPONIN-I 0.061 ng/mL (0.00-0.033)
[2021-04-29 07:52] VITALS: BP 123/51; PULSE 77; TEMP 97.9
--- NOTE | 2021-04-29 09:15 | NUR ---
PT PLEASANT, AOX4, ATE 90% OF BREAKFAST, REPORTS PAIN IN BLE, RLE ULCERS WERE DRESSED, WILL CHANGE DRESSING LATER IN SHIFT, ASSESSMENT PERFORMED, MEDICATIONS GIVEN, VITALS REVIEWED, CALL LIGHT WITHIN REACH, NO OTHER NEEDS AT THIS TIME
[2021-04-29 12:15] VITALS: BP 116/46; PULSE 80; TEMP 97.8
--- NOTE | 2021-04-29 12:34 | NUR ---
packing room worker met with patient to discuss discharge plan. Patient is currently living with her daughter Rosaura ([phone]). Patient admitted recently and was sent home with [facility]. PCP is Dr. Witt and receives her medications through the mail. Patient utilizes a walker to assist with mobility. Spoke with patient's daughter rosaura and she would like for her mother to go to [facility] or a SNF facility. Patient is currently OBS status right now. I informed the daughter that we will have to see what therapies recommendations are before we can send any referrals and that at this moment, if the patient was going to go to a SNF facility then it would be private pay. Daughter states that, that is not an option and that she would be ok with her mother going back home with [facility]. [facility]charge [facility]
--- NOTE | 2021-04-29 13:47 | NUR ---
DRESSING CHANGED ON RLE, ULCERS X2 BLEEDING
[2021-04-29 16:36] VITALS: BP 111/66; PULSE 82; TEMP 98.8
--- NOTE | 2021-04-29 17:34 | NUR ---
PT REPORTS PAIN IN LOWER EXTREMITIES WITH MOVEMENT, DRESSING CHANGED WITH NONADHESIVE PAD AND GAUZE WRAP, PT TOOK PILLS WITH WATER, FOLLOWING FLUID RESTRICTION, NO OTHER NEEDS AT THIS TIME
[2021-04-29 20:05] VITALS: BP 115/62; PULSE 70; TEMP 98.4
[2021-04-30 00:07] VITALS: BP 99/50; PULSE 99; TEMP 98.4
[2021-04-30 04:01] VITALS: BP 101/56; PULSE 66; TEMP 97.8
--- NOTE | 2021-04-30 05:01 | NUR ---
Rested comfortably throughout night, VS stable, telemetry in use, no s/s of hypo/hyper glyemia, purewick in use, will continue to monitor.
[2021-04-30 07:32] LABS: BASO % 0.1 % (0.0-2.0); EOS # 0.1 K/mm3 (0.0-0.7); EOS % 0.7 % (0-4.0); GRAN # 6.6 K/mm3 (1.4-6.5); GRAN % 73.2 % (42.2-75.2); HEMATOCRIT 38.4 % (37.0-47.0); HEMOGLOBIN 12.3 g/dl (12.5-16.0); LYMPH # 1.7 K/mm3 (1.2-3.4); LYMPH % 18.2 % (20.0-51.0); MEAN CELL VOLUME 88 fl (80.0-100.0); MEAN CORPUSCULAR HEMOGLOBIN 28 pg (27.0-31.0); MEAN CORPUSCULAR HGB CONC 32 g/dl (33.0-37.0); MEAN PLATELET VOLUME 11.5 fl (7.4-10.4); MONO # 0.7 K/mm3 (0.1-0.6); MONO % 7.5 % (1.7-9.3); PLATELET COUNT 150 K/mm3 (130-400); RED BLOOD COUNT 4.35 M/mm3 (4.10-5.30)
[2021-04-30 07:39] LABS: CREATININE, serum 1.15 mg/dL (0.57-1.11); POTASSIUM 4.2 mmol/L (3.5-4.5)
[2021-04-30 08:17] VITALS: BP 119/78; PULSE 103; TEMP 97.5
--- NOTE | 2021-04-30 09:36 | NUR ---
PT RESTING IN BED. MORNING MEDICATIONS GIVEN. SHIFT ASSESSMENT COMPLETED. PT REPORT SOME PAIN IN BLE INTERMITTEN. DENIES ANY NEEDS AT THIS TIME. WILL CONTINUE TO MONITOR.
--- NOTE | 2021-04-30 09:45 | NUR ---
SW consulted IPR Director, Mojgan.
--- NOTE | 2021-04-30 11:02 | NUR ---
WOUND CARE COMPLETED AT THIS TIME. TWO OPEN WOUNDS NOTED TO R WHITTEN. NON ADHERENT DRESSING APPLIED TO AREA AND FLUFF WRAP USED. PEREZ CARE ALSO PROVIDED AT THIS TIME AND PETECHIA NOTED TO PEREZ AREA.
--- NOTE | 2021-04-30 11:52 | NUR ---
The patient is to start on IV Rocephin today. The patient's status was updgraded to inpatient. SHAY met with the patient and her daughter, Nargis, to review discharge plan and update on status. The patient and her daughters confirm they are interested in post-acute rehab upon discharge. They chose 1) IPR 2) [facility]. SHAY updated IPR Director, Mojgan. SHAY contacted and faxed a referral to Mariam at [facility]. The patient also has Medicare [employer] and will need auth from [facility] for IPR/SNF. Awaiting screens. *Discharge plan: post-acute rehab*
[2021-04-30 12:23] VITALS: BP 115/74; PULSE 97; TEMP 98
--- NOTE | 2021-04-30 12:43 | NUR ---
Follow-up visit; Patient fearful about her inability to use her leg and cannot stand up. Rebar Worker encouraged her to wait until she talks to her DrOlivia before she becomes too alarmed and in the mean time we will pray...and we did.
--- NOTE | 2021-04-30 14:28 | NUR ---
Mojgan, IPR Director, reports that she will likely not be able to take the patient. Mariam, at [facility], reports that they are able to accept the patient. SW to update the patient and her daughters.
[2021-04-30 16:57] VITALS: BP 114/68; PULSE 103; TEMP 98.1
[2021-04-30 20:10] VITALS: BP 116/79; PULSE 108; TEMP 98.1
[2021-05-01 00:17] VITALS: BP 125/76; PULSE 103; TEMP 98.4
[2021-05-01 04:08] VITALS: BP 155/71; PULSE 99; TEMP 97.5
[2021-05-01 07:06] LABS: BASO % 0.1 % (0.0-2.0); EOS # 0.1 K/mm3 (0.0-0.7); EOS % 1.5 % (0-4.0); GRAN # 5.3 K/mm3 (1.4-6.5); GRAN % 72.9 % (42.2-75.2); HEMATOCRIT 38.9 % (37.0-47.0); HEMOGLOBIN 12.7 g/dl (12.5-16.0); LYMPH # 1.4 K/mm3 (1.2-3.4); LYMPH % 18.7 % (20.0-51.0); MEAN CELL VOLUME 86 fl (80.0-100.0); MEAN CORPUSCULAR HEMOGLOBIN 28 pg (27.0-31.0); MEAN CORPUSCULAR HGB CONC 33 g/dl (33.0-37.0); MONO # 0.5 K/mm3 (0.1-0.6); MONO % 6.5 % (1.7-9.3); PLATELET COUNT 177 K/mm3 (130-400); RED BLOOD COUNT 4.53 M/mm3 (4.10-5.30); REDCELL DISTRIBUTION WIDTH-CV 16.8 % (11.5-14.5)
[2021-05-01 07:29] LABS: CALCIUM 8.7 mg/dL (8.4-10.2); CREATININE, serum 1.08 mg/dL (0.57-1.11); POTASSIUM 3.9 mmol/L (3.5-4.5)
[2021-05-01 08:08] VITALS: BP 120/75; PULSE 96; TEMP 97.7
--- NOTE | 2021-05-01 09:40 | NUR ---
PT RESTING IN BED. MORNING MEDICATIONS GIVEN. SHIFT ASSESSMENT COMPLETED. PT COMPLAINS OF LLE PAIN BEHIND HER KNEE, REDNESS AND SWELLING NOTED. PT REPORTS SHE THINKS THE PAIN IS BETTER THAN YESTERDAY. DENIES ANY NEEDS. WILL CONTINUE TO MONITOR.
--- NOTE | 2021-05-01 10:01 | NUR ---
Follow-up visit; Patient thanked Low Pressure Firer for looking in on her again this morning and offering God's blessings. Patient says she feels a little better this morning.
[2021-05-01 12:04] VITALS: BP 125/77; PULSE 82; TEMP 97.8
[2021-05-01 16:00] VITALS: BP 125/79; PULSE 101; TEMP 97.9
--- NOTE | 2021-05-01 16:41 | NUR ---
The PA notified SW that they may be ready to discharge the patient tomorrow. SHAY contacted [facility] to start auth. The telemarketing representative reports that it does not look like they manage the patient's plan. SHAY notified and faxed updates to Mariam at [facility].
[2021-05-01 20:27] VITALS: BP 115/53; PULSE 97; TEMP 98.4
[2021-05-02 00:22] VITALS: BP 113/77; PULSE 86; TEMP 98.3
--- NOTE | 2021-05-02 04:41 | NUR ---
Patient resting quietly, on telemetry running A fib RVR 100, VS Stable, denies pain, tolerating antibiotic therapy for BLE cellulitis, no s/s of hypo/hyper glycemia, updated on plan of care- verbalizes understanding.
[2021-05-02 04:53] VITALS: BP 123/73; PULSE 77; TEMP 98.2
[2021-05-02 06:51] LABS: HEMOGLOBIN 13.1 g/dl (12.5-16.0); MEAN CELL VOLUME 86 fl (80.0-100.0); MEAN CORPUSCULAR HEMOGLOBIN 28 pg (27.0-31.0); MEAN CORPUSCULAR HGB CONC 33 g/dl (33.0-37.0); MEAN PLATELET VOLUME 11.6 fl (7.4-10.4); PLATELET COUNT 177 K/mm3 (130-400); RED BLOOD COUNT 4.66 M/mm3 (4.10-5.30); REDCELL DISTRIBUTION WIDTH-CV 16.7 % (11.5-14.5)
--- NOTE | 2021-05-02 07:00 | NUR ---
Report received from ZORAN Butcher. Pt requesting hot chocolate, will provide.
[2021-05-02 07:34] LABS: CALCIUM 8.8 mg/dL (8.4-10.2); CREATININE, serum 0.93 mg/dL (0.57-1.11)
[2021-05-02 09:49] VITALS: BP 131/79; PULSE 99; TEMP 97.7
--- NOTE | 2021-05-02 10:04 | NUR ---
Assessment charted. Pt in bed resting. c/o pain to LLE around red spots on knee is 10/10 on palpation. PRN tylenol provided and will address with provider during rounds. Resting in bed, purewick in place per request. Will continue to montior.
--- NOTE | 2021-05-02 11:14 | NUR ---
First visit from the brick and tile making machine operator No needs right now.
[2021-05-02 11:19] VITALS: BP 118/61; PULSE 81; TEMP 98.2
--- NOTE | 2021-05-02 12:32 | NUR ---
Changed dressing to RLE, xerforom, 4x4 telfa, and kerlex. LLE redness reamins and appears to be fluid filled blisters. Notified Dr. Stephens and aware.
--- NOTE | 2021-05-02 14:35 | NUR ---
The patient is not ready to discharge today. SHAY notified Mariam at [facility]. Mariam reports that the patient's plan does require auth and they are working on getting auth. SHAY to fax updates to [facility]. SHAY then met with the patient to update on referrals. The patient is agreeable to going to [facility]. SHAY attempted to contact her daughter, Rosaura, to update. SHAY left her a voicemail. *Discharge plan: [facility] SNF*
[2021-05-02 15:41] VITALS: BP 111/71; PULSE 96; TEMP 97.6
--- NOTE | 2021-05-02 15:54 | NUR ---
The hospitalist and PA notified SHAY that the patient may be able to discharge tomorrow. SHAY notified and faxed updates to Mariam at [facility]. SHAY updated the patient's daughter, Rosaura. Awaiting insurance auth.
--- NOTE | 2021-05-02 18:37 | NUR ---
Pt has done well over shift. Family at bedside this afternoon and evening. Pt resting in bed. Denies needs, will give report to nightshift nurse who will resume care.
[2021-05-02 19:42] VITALS: BP 112/59; PULSE 98; TEMP 98.1
--- NOTE | 2021-05-02 21:30 | NUR ---
Patient is resting in bed, alert and oriented x 4, VSS, denies pain but asks for toradol to be able to sleep. Tele in place Afib. Purewick in place. No insulin needed. Assessment completed. Meds provided. No further needs at this time. Call light within reach.
--- NOTE | 2021-05-03 00:32 | NUR ---
Report given to Guadalupe MEEHAN
[2021-05-03 00:41] VITALS: BP 108/48; PULSE 87; TEMP 97.6
--- NOTE | 2021-05-03 01:24 | NUR ---
Resting quietly, denies pain at this time, tolerating antibiotics w/o issue, VS stable, BLE elevated with treatment for cellulitis continuing, Repositioned q 2 hours to offload pressure to coccyx, Will continue to monitor.
[2021-05-03 04:20] VITALS: BP 102/66; PULSE 79; TEMP 97.8
[2021-05-03 06:46] LABS: BASO % 0.4 % (0.0-2.0); EOS # 0.1 K/mm3 (0.0-0.7); EOS % 2.8 % (0-4.0); GRAN # 2.5 K/mm3 (1.4-6.5); GRAN % 55.3 % (42.2-75.2); HEMATOCRIT 40.2 % (37.0-47.0); HEMOGLOBIN 12.8 g/dl (12.5-16.0); LYMPH # 1.5 K/mm3 (1.2-3.4); LYMPH % 31.7 % (20.0-51.0); MEAN CELL VOLUME 89 fl (80.0-100.0); MEAN CORPUSCULAR HEMOGLOBIN 28 pg (27.0-31.0); MEAN CORPUSCULAR HGB CONC 32 g/dl (33.0-37.0); MEAN PLATELET VOLUME 11.4 fl (7.4-10.4); MONO # 0.4 K/mm3 (0.1-0.6); MONO % 9.6 % (1.7-9.3); PLATELET COUNT 210 K/mm3 (130-400); RED BLOOD COUNT 4.54 M/mm3 (4.10-5.30); REDCELL DISTRIBUTION WIDTH-CV 16.9 % (11.5-14.5)
[2021-05-03 07:09] LABS: ALBUMIN 2.2 gm/dL (3.4-4.8); CALCIUM 8.7 mg/dL (8.4-10.2); CREATININE, serum 1.07 mg/dL (0.57-1.11); PHOSPHOROUS 3.3 mg/dL (2.3-4.7); POTASSIUM 4.1 mmol/L (3.5-4.5)
[2021-05-03 07:18] VITALS: BP 111/64; PULSE 91; TEMP 97.4
--- NOTE | 2021-05-03 08:30 | NUR ---
Assessment completed, alert/oriented, vital signs stable and afebrile, denies pain this morning, heart irregular/ A.fib on tele with rate controlled, no resp.difficulty/ lungs CTA, RLE has 2 ulcers on her inner ankle/ dressing C/D/I, LLE has 2+ edema and more redness, both legs remain tender to touch, she had a couple of firm nodules on her inner left leg that are a reddish/purple discoloration and painful, patient also has dark/ purpleish discoloration to her sacral/coccygeal/ no breakdown noted, also has some redness under skin folds/ will apply desenx powder PRN, Student nurse is doing primary nursring care , I will discuss these findings with the hospitalists, Napoleon brown ext.cath in place Social work is working on discharge planning and possible transfer to SNF today, breakfast ordered for her, patient denies other needs at this time
[2021-05-03] MEDS ORDERED: AMOXICILLIN 8751 TAB PO (10:50)
[2021-05-03] MEDS ORDERED: DOXYCYCLINE HY100 MG PO (10:51)
[2021-05-03] MEDS ORDERED: PROBIOTIC BLEN1 EACH PO (10:53)
[2021-05-03 12:32] VITALS: BP 113/61; PULSE 74; TEMP 97.9
--- NOTE | 2021-05-03 12:56 | NUR ---
The hospitalist is ready to discharge the patient today. SHAY notified and faxed updates to Mariam at [facility]. Mariam reports that they have not got auth from insurance yet. She states that their finance team called [facility] this morning and [facility] informed them that they canceled their auth request. [facility] had to re-submit for auth. SHAY contacted and updated the patient's daughter, Rosaura. Awaiting insurance auth.
--- NOTE | 2021-05-03 13:55 | NUR ---
Primary nurse was assisted [phone] patient care by [facility] student Mabel Cedeno and [facility] instructor Lynda Benito MSN, RN.
--- NOTE | 2021-05-03 14:30 | NUR ---
Mariam, at [facility], contacted SHAY. Mariam reports that their finance team has been calling [facility] to follow up on auth. [facility] is telling them that it could take them 5-14 days before they authorize their request. She reports that they will keep pursing with the auth and calling [facility], but by the time they get auth, they may not have a bed available. SHAY contacted and updated the patient's daughter, Rosaura. Rosaura verbalized understanding. She was interested in [facility], if [facility] does not have a bed available by the time auth is given. SHAY updated the patient. The patient reports that she will do what she needs to. SHAY contacted and faxed a referral to Sarahy at [facility]. Awaiting screen. SHAY updated the patient's RN and PA.
[2021-05-03 15:36] VITALS: BP 121/75; PULSE 80; TEMP 97.6
[2021-05-03 20:00] VITALS: BP 131/62; PULSE 88; TEMP 98.2
--- NOTE | 2021-05-03 21:30 | NUR ---
Patient is alert and oriented, VSS, reports pain in her legs, specially with touch. Tele in place, afib. Assessment completed, medications provided. No further needs at this time. Call light within reach.
[2021-05-04] VITALS (8 sets, daily range): BP systolic 97–147; BP diastolic 40–107; PULSE 54–99; TEMP 97.6–98.3
--- NOTE | 2021-05-04 06:29 | NUR ---
Patient has been stable. She continues with pain in her lower legs. Continues with Afib 80s. Shift report will be given to day RN.
[2021-05-04 07:06] LABS: BASO % 0.5 % (0.0-2.0); EOS # 0.1 K/mm3 (0.0-0.7); EOS % 2.3 % (0-4.0); GRAN # 2.3 K/mm3 (1.4-6.5); GRAN % 51.8 % (42.2-75.2); HEMATOCRIT 39.3 % (37.0-47.0); HEMOGLOBIN 12.8 g/dl (12.5-16.0); LYMPH # 1.5 K/mm3 (1.2-3.4); LYMPH % 35.1 % (20.0-51.0); MEAN CELL VOLUME 87 fl (80.0-100.0); MEAN CORPUSCULAR HEMOGLOBIN 28 pg (27.0-31.0); MEAN CORPUSCULAR HGB CONC 33 g/dl (33.0-37.0); MEAN PLATELET VOLUME 11.2 fl (7.4-10.4); MONO # 0.4 K/mm3 (0.1-0.6); MONO % 10.1 % (1.7-9.3); PLATELET COUNT 217 K/mm3 (130-400); RED BLOOD COUNT 4.54 M/mm3 (4.10-5.30); REDCELL DISTRIBUTION WIDTH-CV 16.4 % (11.5-14.5)
[2021-05-04 07:26] LABS: ALBUMIN 2.1 gm/dL (3.4-4.8); CALCIUM 8.7 mg/dL (8.4-10.2); CREATININE, serum 0.84 mg/dL (0.57-1.11); PHOSPHOROUS 3.2 mg/dL (2.3-4.7); POTASSIUM 4.2 mmol/L (3.5-4.5)
--- NOTE | 2021-05-04 09:36 | NUR ---
Patient assisted with sponge/bed bath. Patient brushed teeth with set up assistance. Bedding and gown changed. Patient resting with bed in lowest position and callight in reach.
[2021-05-04] MEDS ORDERED: TYLENOL 500MG500 MG PO (10:10)
--- NOTE | 2021-05-04 14:23 | NUR ---
Primary nurse was assisted with [phone] patient care by [facility] student Mabel Cedeno and [facility] instructor Lynda MSN, RN.
--- NOTE | 2021-05-04 15:41 | NUR ---
SHAY contacted the Health Plan phone number [phone] to check on auth for [facility]. The rep, Ann Chery, reports that she sees the auth request from [facility] and that she can authorize the SNF stay. Auth#[id number]. Ref#[id number]. SHAY notified Mariam at [facility] and provided her with the above information. Mariam then contacted SW back. Mariam reports that their finance team called the above phone number and the auth they gave this SW did not approve the stay. She reports that the request is still pending. SHAY contacted the Health Plan phone number to follow up. The rep confirms that the request from [facility] is still pending and under review. The rep reports that she submitted for the request to be highest priority. It can take up to 24 hours or sooner to hear back. SHAY updated Mariam at [facility]. Mariam reports that they will keep pursuing the auth, but they might now have a bed available. SHAY contacted and updated the patient's daughter, Digna. Digna verbalized understanding. SHAY contacted Sarahy at [facility] to follow up on the referral. Sarahy reports that they contacted [facility] and [facility] informed them that they do not require auth. She reports that they will not be able to do anything until Friday though. SW to continue to follow.
--- NOTE | 2021-05-04 18:18 | NUR ---
Pt slightly confused this afternoon. Pain well controlled. Sitting up eating dinner at this time.
--- NOTE | 2021-05-04 18:25 | NUR ---
Vancomycin Follow-up Pharmacy Note Current regimen: Vancomycin 750 mg IV q12h Vancomycin trough: 24.47 Adjustments: Decrease to Vancomycin 750 mg IV q24h. Pharmacy will continue to closely monitor and check a Vancomycin trough on 05/07/21.
--- NOTE | 2021-05-04 22:53 | NUR ---
Patient assessed around 2029. Reported lvel 5 pain to legs. Given PRN Ultram as requested. Telemetry in place, A-fib, rate controlled. Redness to groin. Purewick external female catheter changed. Mima care provided. Clear yellow urine. Voices no questions, needs, or concerns at this time. Resting in bed with call light within reach.
[2021-05-05] VITALS (7 sets, daily range): BP systolic 103–130; BP diastolic 49–77; PULSE 74–93; TEMP 97.6–98.2
--- NOTE | 2021-05-05 05:51 | NUR ---
Patient has denied having pain and discomfort since receiving PRN Ultram at begining of shift. Has voiced no questions, needs, or concerns at this time. Purewick remains in place with clear yellow urine output. IV antibiotic running at this time per orders. In bed with call light within reach. Bed alarm on.
[2021-05-05 09:45] LABS: CALCIUM 8.9 mg/dL (8.4-10.2); CREATININE, serum 0.8 mg/dL (0.57-1.11)
--- NOTE | 2021-05-05 10:40 | NUR ---
SHAY update: SHAY spoke with Latasha at [facility] and they have not received the insurance authorization. Most likey in stay for the weekend. WF>
--- NOTE | 2021-05-05 18:48 | NUR ---
Pt had uneventful day, up to the chair for a few hourse this afternoon, caused a lot of pain to leg. Repositioning provided. Purewick in place, bed alarm on. Will continue to monitor.
--- NOTE | 2021-05-05 19:35 | NUR ---
Patient assessed at this time. Denies having pain and discomfort at this time. States pain is present when she is moving to BLE. Peripheral INT to left forearm. LS CTA. HRI. Purewick external female catheter in place, with clear yellow urine. Respositioned in bed. Encouraged movement. 1+ edeme BLE. Venous stasis to BLE with discoloration. Patient voices no questions, needs, or concerns at this time. In bed with call light within reach. Bed alarm on.
[2021-05-06 03:59] VITALS: BP 119/66; PULSE 69; TEMP 97.8
--- NOTE | 2021-05-06 06:07 | NUR ---
Patient has been resting in bed with call light within reach. Denies having pain and discomfort. Continues on IV ABX per orders. Bed alarm on.
[2021-05-06 08:54] VITALS: BP 144/87; PULSE 96; TEMP 98.1
[2021-05-06 11:31] VITALS: BP 123/65; BP 64/34; PULSE 87; TEMP 97.9
[2021-05-06 15:56] VITALS: BP 112/65; PULSE 84; TEMP 97.8
--- NOTE | 2021-05-06 19:00 | NUR ---
RECEIVED CHANGE OF SHIFT REPORT FROM DAY SHIFT NURSE.
[2021-05-06 19:13] VITALS: BP 119/72; PULSE 89; TEMP 98.7
[2021-05-06 23:38] VITALS: BP 117/49; PULSE 77; TEMP 98.4
--- NOTE | 2021-05-07 02:09 | NUR ---
PATIENT SLEEPING, DOES NOT WAKE WHEN ROOM ENTERED BY STAFF ON ROUNDING. IVF INFUSING WITH NO PROBLEMS. PUREWICK IN PLACE, DRAINING URINE PER WALL SUCTION, CLEAR IN APPEARANCE. BREATHING NONLABORED AND EVEN. ON ROOM AIR.
[2021-05-07 03:46] VITALS: BP 110/68; PULSE 73; TEMP 98.4
[2021-05-07 06:40] LABS: CALCIUM 8.8 mg/dL (8.4-10.2); CREATININE, serum 0.69 mg/dL (0.57-1.11); POTASSIUM 4.2 mmol/L (3.5-4.5)
--- NOTE | 2021-05-07 07:10 | NUR ---
CHANGE OF SHIFT REPORT GIVEN TO DAY SHIFT NURSEREBEKAH RN.
--- NOTE | 2021-05-07 07:15 | NUR ---
PT LAYING IN BED DENIES ANY NEEDS AT THIS TIME.
[2021-05-07 07:48] VITALS: BP 115/54; PULSE 63; TEMP 97.8
[2021-05-07 11:38] VITALS: BP 126/68; PULSE 58; TEMP 97.9
[2021-05-07 14:46] VITALS: BP 126/68; PULSE 58; TEMP 97.9
--- NOTE | 2021-05-07 15:06 | NUR ---
SHAY faxed updates to [facility] and [facility]. Mariam, at [facility], reports that they checked the patient's insurance and their request is still under review and has not been assigned to a case specialist yet. Mg, at [facility], reports that they have called the patient's insurance twice and both times, insurance told them that they are in-network and do not require a prior-auth. She reports that they are able to accept the patient. SHAY contacted and updated the patient's daughter, Rosaura, on the above. Rosaura verbalized understanding. Rosaura reports that the patient is ready to get out of the hospital and start rehab. Rosaura reports that she is good with the patient going to [facility] today. SW updated the patient. The patient is also agreeable with going to [facility]. SW presented and read the IM form outloud to the patient. The patient verbalized understanding and signed the form. SW provided her with a copy. The patient is to discharge today, 05/07, to [facility] for a skilled stay. Transportation was scheduled at 1515, via [facility]. SHAY informed the patient, her RN, and daughter (Rosaura) of the time. They were all agreeable to the time. SHAY updated Mariam at [facility]. No additional needs at this time.
== END 2021-05-07 17:00 | DRG 280 ==
LOC: COL.ER 17:34 → MEDICAL 22:18
PROVIDERS: Family Medicine; Internal Medicine; Nurse Practitioner Family; Physician Assistant; Student in an Organized Health Care Education/Training Program; ADMIT Family Medicine
DX: I11.0 Hypertensive heart disease with heart failure (principal); I50.33 Acute on chronic diastolic (congestive) heart failure; I21.A1 Myocardial infarction type 2; J96.01 Acute respiratory failure with hypoxia; N17.9 Acute kidney failure, unspecified; L03.115 Cellulitis of right lower limb; I48.0 Paroxysmal atrial fibrillation; E11.40 Type 2 diabetes mellitus with diabetic neuropathy, unspecified; E78.5 Hyperlipidemia, unspecified; I08.1 Rheumatic disorders of both mitral and tricuspid valves; K21.9 Gastro-esophageal reflux disease without esophagitis; F41.9 Anxiety disorder, unspecified; L98.499 Non-pressure chronic ulcer of skin of other sites with unspecified severity; I27.20 Pulmonary hypertension, unspecified; K59.00 Constipation, unspecified; Z20.822 Contact with and (suspected) exposure to COVID-19; Z96.651 Presence of right artificial knee joint; Z86.73 Personal history of transient ischemic attack (TIA), and cerebral infarction without residual deficits; Z79.02 Long term (current) use of antithrombotics/antiplatelets; Z79.84 Long term (current) use of oral hypoglycemic drugs; Z23 Encounter for immunization
CPT/HCPCS: 99232-AI; 99233-AI; 99239; G0378; J0696; J1644; J1940; J3370; J7050; Q9967

== ENCOUNTER → 2021-11-16 | Outpatient (CLI) | payer MEDICARE ==
[~2021-11-16] MED LIST changes: +DOXYCYCLINE HY100 MG PO; +K-DUR20 MEQ PO; +PROBIOTIC BLEN1 EACH PO
== END ==
LOC: MC.RAD 11:30
DX: Z12.31 Encounter for screening mammogram for malignant neoplasm of breast (principal)

== ENCOUNTER 2022-01-17 12:43 | Emergency (ER) | payer MEDICARE ==
[~2022-01-17] VITALS: Ht 165.1 cm; Wt 61.8 kg
[2022-01-17 13:14] VITALS: TEMP 98.4
[2022-01-17 14:27] LABS: BASO % 0.3 % (0.0-2.0); EOS % 0.3 % (0.0-4.0); GRAN # 1.7 K/mm3 (1.4-6.5); GRAN % 45.7 % (42.2-75.2); HEMATOCRIT 41.3 % (37.0-47.0); HEMOGLOBIN 13.8 g/dl (12.5-16.0); LYMPH # 1.4 K/mm3 (1.2-3.4); LYMPH % 38.3 % (20.0-51.0); MEAN CELL VOLUME 87 fl (80.0-100.0); MEAN CORPUSCULAR HEMOGLOBIN 29 pg (27-31); MEAN CORPUSCULAR HGB CONC 33 g/dl (33.0-37.0); MEAN PLATELET VOLUME 11.6 fl (7.4-10.4); MONO # 0.6 K/mm3 (0.1-0.6); MONO % 15.1 % (1.7-9.3); PLATELET COUNT 132 K/mm3 (130-400); RED BLOOD COUNT 4.73 M/mm3 (4.10-5.30); REDCELL DISTRIBUTION WIDTH-CV 15.1 % (11.5-14.5)
[2022-01-17 14:43] LABS: ALBUMIN 3.6 gm/dL (3.4-4.8); BILIRUBIN,TOTAL 1.5 mg/dL (0.2-1.2); CALCIUM 9.7 mg/dL (8.4-10.2); CREATININE, serum 1.46 mg/dL (0.57-1.11); POTASSIUM 4.3 mmol/L (3.5-4.5); TOTAL PROTEIN 8.7 gm/dL (6.2-8.1)
[2022-01-17 14:48] LABS: TROPONIN-I 0.019 ng/mL (0.00-0.033)
[2022-01-17 15:15] LABS: COLLECTION METHOD CLEAN CATCH
[2022-01-17 15:32] LABS: MUCOUS Present (NOT PRESENT); PH 5 (5-8); URINE APPEARANCE Cloudy (CLEAR/HAZY); URINE BACTERIA Many /hpf (NONE SEEN); URINE BILIRUBIN Negative (NEGATIVE); URINE BLOOD Negative (NEGATIVE); URINE COLOR Yellow (YELLOW); URINE GLUCOSE Negative (NEGATIVE); URINE KETONE Negative (NEGATIVE); URINE LEUKOCYTE ESTERASE 3+ (NEGATIVE); URINE NITRATE Negative (NEGATIVE); URINE PROTEIN(semi-quant) Negative (NEGATIVE); URINE UROBILINOGEN Negative (NEGATIVE)
[2022-01-17] MEDS ORDERED: CEPHALEXIN500 M1 PO (15:51)
[2022-01-17 16:36] VITALS: BP 124/69; PULSE 80
== END 2022-01-17 18:17 | disposition home or self-care (01) ==
LOC: COL.ER 12:43
PROVIDERS: Emergency Medicine
DX: N39.0 Urinary tract infection, site not specified (principal); N28.9 Disorder of kidney and ureter, unspecified; E86.0 Dehydration; I50.9 Heart failure, unspecified; Z79.899 Other long term (current) drug therapy; Z88.1 Allergy status to other antibiotic agents
CPT/HCPCS: J0696; J7040

== ENCOUNTER 2022-01-21 14:56 | Observation (INO) | payer MEDICARE ==
[~2022-01-21] VITALS: Ht 165.1 cm; Wt 64.2 kg
[~2022-01-21 14:56] MED LIST changes: +CEPHALEXIN500 M1 PO
[2022-01-21 15:59] LABS: BASO % 0.4 % (0.0-2.0); EOS % 0.7 % (0.0-4.0); GRAN % 37.8 % (42.2-75.2); HEMATOCRIT 34.7 % (37.0-47.0); HEMOGLOBIN 11.6 g/dl (12.5-16.0); LYMPH # 1.4 K/mm3 (1.2-3.4); LYMPH % 49.8 % (20.0-51.0); MEAN CELL VOLUME 86 fl (80.0-100.0); MEAN CORPUSCULAR HEMOGLOBIN 29 pg (27-31); MEAN CORPUSCULAR HGB CONC 33 g/dl (33.0-37.0); MEAN PLATELET VOLUME 11.4 fl (7.4-10.4); MONO # 0.3 K/mm3 (0.1-0.6); MONO % 10.9 % (1.7-9.3); PLATELET COUNT 135 K/mm3 (130-400); RED BLOOD COUNT 4.05 M/mm3 (4.10-5.30)
[2022-01-21 16:16] LABS: ALBUMIN 2.7 gm/dL (3.4-4.8); BILIRUBIN,TOTAL 0.8 mg/dL (0.2-1.2); CALCIUM 8.2 mg/dL (8.4-10.2); CREATININE, serum 1.26 mg/dL (0.57-1.11); POTASSIUM 4.2 mmol/L (3.5-4.5); TOTAL PROTEIN 6.6 gm/dL (6.2-8.1)
[2022-01-21 16:24] LABS: TROPONIN-I 0.039 ng/mL (0.00-0.033)
[2022-01-21 20:33] VITALS: BP 127/84; PULSE 69; TEMP 98.3
[2022-01-21 21:21] LABS: COLLECTION METHOD CLEAN CATCH
[2022-01-21 21:28] LABS: MUCOUS Present (NOT PRESENT); PH 5 (5-8); SQUAMOUS EPITHELIAL 0-2 /hpf (0-10); URINE APPEARANCE Hazy (CLEAR/HAZY); URINE BACTERIA None Seen /hpf (NONE SEEN); URINE BLOOD Negative (NEGATIVE); URINE COLOR Yellow (YELLOW); URINE GLUCOSE Negative (NEGATIVE); URINE KETONE Negative (NEGATIVE); URINE NITRATE Negative (NEGATIVE); URINE PROTEIN(semi-quant) Negative (NEGATIVE); URINE RBC 0-2 /hpf (0-2); URINE UROBILINOGEN Negative (NEGATIVE)
[2022-01-21] MEDS ORDERED: TYLENOL SU650 MG/SUP RC (23:07)
[2022-01-21] MEDS ORDERED: LEXAPRO 10MG10 MG PO (23:16)
[2022-01-21] MEDS ORDERED: IMODIUM 2MG CAPS2 MG PO (23:17)
[2022-01-22] VITALS (9 sets, daily range): BP systolic 86–132; BP diastolic 64–79; PULSE 40–89; TEMP 97.3–98.2
[2022-01-22 07:06] LABS: GRAN # 1.2 K/mm3 (1.4-6.5); GRAN % 47.1 % (42.2-75.2); HEMATOCRIT 41.4 % (37.0-47.0); HEMOGLOBIN 13.5 g/dl (12.5-16.0); LYMPH # 1.3 K/mm3 (1.2-3.4); MEAN CELL VOLUME 88 fl (80.0-100.0); MEAN CORPUSCULAR HEMOGLOBIN 29 pg (27-31); MEAN CORPUSCULAR HGB CONC 33 g/dl (33.0-37.0); MONO # 0.1 K/mm3 (0.1-0.6); MONO % 3.9 % (1.7-9.3); PLATELET COUNT 126 K/mm3 (130-400); RED BLOOD COUNT 4.73 M/mm3 (4.10-5.30); REDCELL DISTRIBUTION WIDTH-CV 15.2 % (11.5-14.5)
[2022-01-22 07:17] LABS: CREATININE, serum 1.27 mg/dL (0.57-1.11); MAGNESIUM 1.9 mg/dL (1.6-2.6); POTASSIUM 4.5 mmol/L (3.5-4.5)
[2022-01-23 00:27] VITALS: BP 98/82; PULSE 89
[2022-01-23 04:59] VITALS: BP 116/71; PULSE 63
[2022-01-23 05:01] VITALS: TEMP 97.5
[2022-01-23 08:00] VITALS: BP 127/73; PULSE 64; TEMP 97.4
[2022-01-23] MEDS ORDERED: DECADRON6 MG PO (10:25)
[2022-01-23 11:38] VITALS: BP 121/72; PULSE 59; TEMP 97.5
[2022-01-23 15:58] VITALS: BP 111/76; PULSE 101; TEMP 98.4
== END 2022-01-23 17:04 | disposition home or self-care (01) ==
LOC: COL.ER 14:56 → MEDICAL 18:25
PROVIDERS: Emergency Medicine; Student in an Organized Health Care Education/Training Program; ADMIT Family Medicine
DX: U07.1 COVID-19 (principal); J96.01 Acute respiratory failure with hypoxia; R53.1 Weakness; S81.812A Laceration without foreign body, left lower leg, initial encounter; M85.80 Other specified disorders of bone density and structure, unspecified site; R77.8 Other specified abnormalities of plasma proteins; I13.0 Hypertensive heart and chronic kidney disease with heart failure and stage 1 through stage 4 chronic kidney disease, or unspecified chronic kidney disease; I50.20 Unspecified systolic (congestive) heart failure; I48.0 Paroxysmal atrial fibrillation; N18.9 Chronic kidney disease, unspecified; E11.22 Type 2 diabetes mellitus with diabetic chronic kidney disease; E11.42 Type 2 diabetes mellitus with diabetic polyneuropathy; I50.30 Unspecified diastolic (congestive) heart failure; N17.9 Acute kidney failure, unspecified; E78.5 Hyperlipidemia, unspecified; I27.20 Pulmonary hypertension, unspecified; I08.1 Rheumatic disorders of both mitral and tricuspid valves; K21.9 Gastro-esophageal reflux disease without esophagitis; F41.9 Anxiety disorder, unspecified; W19.XXXA Unspecified fall, initial encounter; Z86.73 Personal history of transient ischemic attack (TIA), and cerebral infarction without residual deficits; Y92.9 Unspecified place or not applicable; Z79.899 Other long term (current) drug therapy; Z79.02 Long term (current) use of antithrombotics/antiplatelets; Z86.79 Personal history of other diseases of the circulatory system
CPT/HCPCS: 99233-AI; G0378; J0696; J1100

== ENCOUNTER 2022-03-17 15:00 | Inpatient (IN) | payer MEDICARE ==
[~2022-03-17] VITALS: Ht 165.1 cm; Wt 63.0 kg
[~2022-03-17 15:00] MED LIST changes: +DECADRON6 MG PO; +IMODIUM 2MG CAPS2 MG PO; +LEXAPRO 10MG10 MG PO; +TYLENOL SU650 MG/SUP RC
[2022-03-17 15:23] LABS: BASO % 0.1 % (0.0-2.0); EOS # 0.1 K/mm3 (0.0-0.7); EOS % 0.6 % (0.0-4.0); GRAN # 10.2 K/mm3 (1.4-6.5); HEMOGLOBIN 11.9 g/dl (12.5-16.0); LYMPH # 1.5 K/mm3 (1.2-3.4); LYMPH % 12.7 % (20.0-51.0); MEAN CELL VOLUME 88 fl (80.0-100.0); MEAN CORPUSCULAR HEMOGLOBIN 29 pg (27-31); MEAN CORPUSCULAR HGB CONC 33 g/dl (33.0-37.0); MONO # 0.2 K/mm3 (0.1-0.6); MONO % 1.4 % (1.7-9.3); PLATELET COUNT 181 K/mm3 (130-400); RED BLOOD COUNT 4.15 M/mm3 (4.10-5.30); REDCELL DISTRIBUTION WIDTH-CV 17.2 % (11.5-14.5)
[2022-03-17 15:41] LABS: HEMATOCRIT 36.6 % (37.0-47.0)
[2022-03-17 15:45] LABS: ALBUMIN 3.2 gm/dL (3.4-4.8); BILIRUBIN,TOTAL 1.5 mg/dL (0.2-1.2); CALCIUM 9.6 mg/dL (8.4-10.2); CREATININE, serum 1.16 mg/dL (0.57-1.11); POTASSIUM 4.5 mmol/L (3.5-4.5)
[2022-03-17 15:51] LABS: TROPONIN-I 0.014 ng/mL (0.00-0.033)
[2022-03-17 18:10] VITALS: BP 118/64; PULSE 95; TEMP 98.2
[2022-03-17] MEDS ORDERED: ATIVAN 0.50.5 MG/TAB PO (18:20)
[2022-03-17] MEDS ORDERED: DEMADEX 20MG20 M1 PO (18:22)
[2022-03-17 19:55] LABS: COLLECTION METHOD CLEAN CATCH
[2022-03-17 20:02] LABS: PH 5.5 (5.0-8.5); URINE APPEARANCE Clear (CLEAR/HAZY); URINE BLOOD Negative (NEGATIVE); URINE COLOR Yellow (YELLOW); URINE GLUCOSE Negative (NEGATIVE); URINE KETONE Negative (NEGATIVE); URINE NITRATE Negative (NEGATIVE); URINE PROTEIN(semi-quant) TRACE (NEGATIVE); URINE UROBILINOGEN 0.2 E.U/dL (0.2-1.0)
[2022-03-17 20:03] LABS: MUCOUS Present (NOT PRESENT); URINE BACTERIA Rare /hpf (NONE SEEN); URINE RBC 0-2 /hpf (0-2)
[2022-03-17 20:30] VITALS: BP 95/50; PULSE 96; TEMP 98.6
[2022-03-18] VITALS (7 sets, daily range): BP systolic 92–112; BP diastolic 37–54; PULSE 70–107; TEMP 97.2–98.7
--- NOTE | 2022-03-18 00:24 | NUR ---
PATIENT HAD INCONTINENCE EPISODE PATIENT NOTED TO HAVE PRESSURE ULCER PRESENT ON ARRIVAL TO [facility]. ULCER MEASURES 1 CM IN LENGTH AND 0.5 CM IN WIDTH. WOUND BED NOTED TO BE BEEFY RED. MEPILEX APPLIED. PATIENT ALSO NOTED TO HAVE ABRASION TO LEFT LOWER LEG THAT HAD SLIGHT DRAINAGE ALSO PRESENT UPON ARRIVAL. MEPILEX ALSO APPLIED TO THIS AREA.
--- NOTE | 2022-03-18 06:23 | NUR ---
PATIENT RESTED QUIETLY THIS SHIFT. PATIENT HAD NO COMPLAINTS OF PAIN AND RECEIVED NO PRN MEDICATIONS. PATIENT BLOOD CULUTURES CAME BACK POSITIVE FOR GROUP B STREP AND PROVIDER NOTIFIED. NO NEW ORDERS.
[2022-03-18 06:48] LABS: ALBUMIN 2.4 gm/dL (3.4-4.8); CALCIUM 8.5 mg/dL (8.4-10.2); CREATININE, serum 1.28 mg/dL (0.57-1.11); MAGNESIUM 1.3 mg/dL (1.6-2.6); PHOSPHOROUS 2.7 mg/dL (2.3-4.7); POTASSIUM 3.4 mmol/L (3.5-4.5)
[2022-03-18 06:49] LABS: MEAN CELL VOLUME 86 fl (80.0-100.0); MEAN CORPUSCULAR HGB CONC 34 g/dl (33.0-37.0); MEAN PLATELET VOLUME 11.5 fl (7.4-10.4); PLATELET COUNT 117 K/mm3 (130-400); RED BLOOD COUNT 3.25 M/mm3 (4.10-5.30); REDCELL DISTRIBUTION WIDTH-CV 17.2 % (11.5-14.5)
[2022-03-18 06:51] LABS: MEAN CORPUSCULAR HEMOGLOBIN 29 pg (27-31)
[2022-03-18 06:54] LABS: HEMOGLOBIN 9.5 g/dl (12.5-16.0)
--- NOTE | 2022-03-18 07:24 | NUR ---
HGB of 9.5 reported to Manjula, who read back the results.
[2022-03-18 08:06] LABS: BAND 18 % (0-10); EOSINOPHIL 1 % (0-4); LYMPHOCYTE 12 % (20.0-51.0); NEUTROPHILS 67 % (42.0-75.2)
[2022-03-18 08:07] LABS: PLATELET ESTIMATE DECREASED (NORMAL)
--- NOTE | 2022-03-18 10:46 | NUR ---
Scheduled medications given. Shift assessmnet preformed. VSS. Patient A&O. Patient denies any pain, discomfort, SOA, or further needs at this time. Call light in reach. Fall precautions in place.
--- NOTE | 2022-03-18 13:09 | NUR ---
Button Attaching Machine Operator met with patient to discuss discharge planning. Patient's daughter, Rosaura (ph#[phone]) is at bedside and assisted in answering intake questions as patient had difficulty hearing. Patient lives in [place] with Rosaura and sees Dr. Riddhi Castro for primary care at [place]. Patient obtains medications from [facility] and has a front wheeled walker at home. Patient is normally independent with ADLS and was actually recently discharged from [facility]. Rosaura advised she is DPOA-HC for patient. SHAY reviewed PT/OT recommendation for post acute rehab and Rosaura is agreeable to this. Rosaura stated the goal is rehab to home. First preference is [facility] but they would also like referrals sent to [facility] and [facility]. SHAY contacted all three facilities and gave referral. Discharge Plan: IPR vs SNF
--- NOTE | 2022-03-18 15:18 | NUR ---
[place]: Episcopal Situation: Core Analysis Operator stopped by room on rounds Background: Pt was resting and content Assessment: no needs at this time, pt appreciated the visit Recommendation: Core Analysis Operator will follow up as needed
--- NOTE | 2022-03-18 18:00 | NUR ---
Patient has had an uneventful day. VSS. Patient A&O. Denies any pain, discomfort, SOA, or further needs at this time. Call light in reach. Fall precautions in place.
[2022-03-19 03:59] VITALS: BP 116/68; PULSE 106; TEMP 97.9
--- NOTE | 2022-03-19 06:17 | NUR ---
PT DID NOT URINATE ALL NIGHT. SCANNED BLADDER AROUND 0610 FOR 142. WILL PASS TO DAY SHIFT, UNABLE TO GET AHOLD OF PROVIDER AT THIS TIME.
[2022-03-19 06:29] LABS: BASO % 0.1 % (0.0-2.0); EOS # 0.1 K/mm3 (0.0-0.7); EOS % 0.9 % (0.0-4.0); GRAN # 7.3 K/mm3 (1.4-6.5); GRAN % 79.3 % (42.2-75.2); HEMOGLOBIN 10.1 g/dl (12.5-16.0); LYMPH # 1.2 K/mm3 (1.2-3.4); LYMPH % 12.7 % (20.0-51.0); MEAN CELL VOLUME 88 fl (80.0-100.0); MEAN CORPUSCULAR HEMOGLOBIN 30 pg (27-31); MEAN CORPUSCULAR HGB CONC 34 g/dl (33.0-37.0); MEAN PLATELET VOLUME 11.5 fl (7.4-10.4); MONO # 0.6 K/mm3 (0.1-0.6); MONO % 6.1 % (1.7-9.3); PLATELET COUNT 106 K/mm3 (130-400); RED BLOOD COUNT 3.42 M/mm3 (4.10-5.30); REDCELL DISTRIBUTION WIDTH-CV 17.6 % (11.5-14.5)
[2022-03-19 06:43] LABS: ALBUMIN 2.3 gm/dL (3.4-4.8); CALCIUM 8.6 mg/dL (8.4-10.2); CREATININE, serum 1.5 mg/dL (0.57-1.11); MAGNESIUM 1.3 mg/dL (1.6-2.6); PHOSPHOROUS 1.9 mg/dL (2.3-4.7); POTASSIUM 4.9 mmol/L (3.5-4.5)
[2022-03-19 07:47] VITALS: BP 110/63; PULSE 99; TEMP 98.4
--- NOTE | 2022-03-19 10:00 | NUR ---
Shift assessment preformed. Scheduled oral medications given by SIDRA Man. IV medications given by this RN. Patient states that she has shoulder pain with movement, orders for PRN tylenol entered by Erika. Patient denies any further pain, discomfort, SOA, or further needs at this time. VSS. Patient A&O. Family at the bedside.
[2022-03-19 11:35] VITALS: BP 111/57; PULSE 96; TEMP 99
--- NOTE | 2022-03-19 14:56 | NUR ---
Care Connector faxed updates to [facility] and [facility]. Both facilities advised they are reviewing updates to determine if they can accept. Once accepted the facility will need to submit for prior authorization.
[2022-03-19 15:29] VITALS: BP 123/53; PULSE 97; TEMP 97.9
--- NOTE | 2022-03-19 18:47 | NUR ---
Patient has had an ok day. New IV started in Right AC. VSS. Patient A&O. Patient denies any pain, discomfort, SOA, or further needs at this time. Call light in reach. Fall precautions in place.
[2022-03-19 20:37] VITALS: BP 111/61; PULSE 90; TEMP 98.3
[2022-03-20] VITALS (7 sets, daily range): BP systolic 109–124; BP diastolic 54–70; PULSE 89–105; TEMP 97.6–98.6
[2022-03-20 06:27] LABS: ALBUMIN 2.3 gm/dL (3.4-4.8); CALCIUM 8.5 mg/dL (8.4-10.2); CREATININE, serum 1.05 mg/dL (0.57-1.11); MAGNESIUM 2.4 mg/dL (1.6-2.6); PHOSPHOROUS 2.3 mg/dL (2.3-4.7); POTASSIUM 4.7 mmol/L (3.5-4.5)
[2022-03-20 06:37] LABS: BASO % 0.2 % (0.0-2.0); EOS # 0.1 K/mm3 (0.0-0.7); EOS % 2.4 % (0.0-4.0); GRAN # 4.1 K/mm3 (1.4-6.5); GRAN % 75.3 % (42.2-75.2); LYMPH # 0.8 K/mm3 (1.2-3.4); LYMPH % 14.3 % (20.0-51.0); MEAN CELL VOLUME 88 fl (80.0-100.0); MEAN CORPUSCULAR HGB CONC 34 g/dl (33.0-37.0); MEAN PLATELET VOLUME 12.1 fl (7.4-10.4); MONO # 0.4 K/mm3 (0.1-0.6); MONO % 7.4 % (1.7-9.3); PLATELET COUNT 116 K/mm3 (130-400); REDCELL DISTRIBUTION WIDTH-CV 17.3 % (11.5-14.5)
[2022-03-20 06:42] LABS: HEMOGLOBIN 9.8 g/dl (12.5-16.0); MEAN CORPUSCULAR HEMOGLOBIN 30 pg (27-31)
--- NOTE | 2022-03-20 07:53 | NUR ---
IRMA HOSKINS NOTIFIED ABOUT NA LEVEL.
--- NOTE | 2022-03-20 08:00 | NUR ---
Pt awake and laying in bed. Morning medications administered. Shift assessment completed. Telemetry on. Peripheral line in R AC intact; no edema or redness. No IVF flowing at this time. Pt still has stage II pressure injury on saccrum; pt has been repositioned to L side. Chux soiled and replaced. Purewick in place. Belongings within reach. Call light within reach.
[2022-03-20] MEDS ORDERED: LASIX 40MG TABL40 MG PO (11:13)
--- NOTE | 2022-03-20 15:39 | NUR ---
Government Affairs Specialist faxed clinical updates both [facility] and [facility]. Rosalio at [facility] advised they can accept and have submitted for authorization. Mariam at [facility] requested copy of DPOA-HC and they also had concerns for loose stools. [facility]isol would like a cdiff test. SHAY passed this request to Hospitalist, however Marylou SOLIS advised patient declined having loose stools this morning. SHAY updated patient's daughter, Rosaura who advised she was agreeable to either [facility] or [facility].
--- NOTE | 2022-03-20 17:30 | NUR ---
Mepilex dressing applied to stage II pressure injury on saccrum.
--- NOTE | 2022-03-20 18:00 | NUR ---
Patient has had a rough day. Has had multiple instances of diarrhea. Erika notified, immodium ordered. VSS. Patient A&O, but hard of hearing. [place] area has become red from incontinent episodes, incontinent care provided, barrier cream applied. Stage 2 pressure injury located on sacrum. Patient denies any further pain, discomfort, SOA, or further needs at this time. Call light in reach. Fall precautions in place.
[2022-03-21 03:48] VITALS: BP 125/77; PULSE 61; TEMP 98.1
[2022-03-21 06:27] LABS: BASO % 0.3 % (0.0-2.0); EOS # 0.1 K/mm3 (0.0-0.7); EOS % 3.4 % (0.0-4.0); GRAN # 2.2 K/mm3 (1.4-6.5); HEMOGLOBIN 10.9 g/dl (12.5-16.0); LYMPH # 1.2 K/mm3 (1.2-3.4); MEAN CELL VOLUME 88 fl (80.0-100.0); MEAN CORPUSCULAR HEMOGLOBIN 30 pg (27-31); MEAN CORPUSCULAR HGB CONC 34 g/dl (33.0-37.0); MEAN PLATELET VOLUME 11.7 fl (7.4-10.4); MONO # 0.4 K/mm3 (0.1-0.6); PLATELET COUNT 129 K/mm3 (130-400); RED BLOOD COUNT 3.63 M/mm3 (4.10-5.30); REDCELL DISTRIBUTION WIDTH-CV 17.2 % (11.5-14.5)
[2022-03-21 06:28] LABS: HEMATOCRIT 32.1 % (37.0-47.0)
--- NOTE | 2022-03-21 06:34 | NUR ---
continues having loose stools, immodium given x1, up to bsc with 1 assist using walker, slept well
[2022-03-21 06:40] LABS: ALBUMIN 2.5 gm/dL (3.4-4.8); CALCIUM 8.9 mg/dL (8.4-10.2); CREATININE, serum 0.96 mg/dL (0.57-1.11); PHOSPHOROUS 2.6 mg/dL (2.3-4.7); POTASSIUM 4.4 mmol/L (3.5-4.5)
[2022-03-21 07:12] VITALS: BP 111/68; PULSE 62; TEMP 97.8
--- NOTE | 2022-03-21 07:48 | NUR ---
PT AWAKE, REQUESTS FOR A BEDSIDE COMMODE. DENIES COMPLAINTS.
[2022-03-21] MEDS ORDERED: IPRATROPIUM BROM3 M1 IH (08:46)
[2022-03-21] MEDS ORDERED: AMOXICILLIN 8751 TAB PO (08:55)
[2022-03-21] MEDS ORDERED: NATURAL IRON65 MG PO (10:18)
[2022-03-21] MEDS ORDERED: PLAVIX 75MG TAB75 MG PO (10:18)
[2022-03-21] MEDS ORDERED: LIPITOR 10MG10 MG PO (10:18)
[2022-03-21] MEDS ORDERED: LOFIBRA160 MG PO (10:18)
[2022-03-21] MEDS ORDERED: LOPRESSOR100 MG PO (10:19)
[2022-03-21] MEDS ORDERED: LEXAPRO 10MG10 MG PO (10:19)
[2022-03-21] MEDS ORDERED: ATIVAN 0.50.5 MG/TAB PO (10:19)
[2022-03-21] MEDS ORDERED: VOLTAREN GEL 1%1 TU TP (10:19)
[2022-03-21] MEDS ORDERED: PROTONIX 40MG T40 MG PO (10:19)
[2022-03-21] MEDS ORDERED: TYLENOL 325MG325 MG PO (10:19)
[2022-03-21] MEDS ORDERED: LASIX 40MG TABL40 MG PO (10:19)
[2022-03-21] MEDS ORDERED: B-12 500 MCG PO (10:20)
[2022-03-21] MEDS ORDERED: VITAMINC1000TA PO (10:20)
[2022-03-21 12:00] VITALS: BP 124/53; PULSE 82; TEMP 97.9
--- NOTE | 2022-03-21 12:36 | NUR ---
Primary nurse was assisted with [phone] patient care by [employer] student Jazmin Menon and [employer] instructor Lynda ESCOTO RN
--- NOTE | 2022-03-21 13:21 | NUR ---
Radio Message Router faxed clinical updates to Mariam at [facility]. Mariam advised they can accept today and have insurance auth. SHAY was notified that patient is covid positive. Mariam advised they will not accept today with patient being positive and cannot admit until 10 days out from positive test. [facility] has the same policy. SHAY contacted patient's daughter, Rosaura and provided update. SHAY spoke with Rosaura about [facility] and she would be agreeable to this. SHAY contacted Lesvia at [facility] and gave referral.
[2022-03-21 16:00] VITALS: BP 106/56; PULSE 94; TEMP 98.2
--- NOTE | 2022-03-21 16:00 | NUR ---
pt had a calm day, vss, alert and orient x4, due meds given no adverse reaction noted, denies complaints of pain,no SOB, DRY COUGH NOTED.
[2022-03-21 20:55] VITALS: BP 104/55; PULSE 85; TEMP 98.9
[2022-03-22 00:41] VITALS: BP 109/61; PULSE 83; TEMP 97.7
[2022-03-22 05:07] VITALS: BP 113/64; TEMP 97.6
--- NOTE | 2022-03-22 06:03 | NUR ---
PATIENT RESTED QUIETLY THIS SHIFT. PATIENT HAD NO COMPLAINTS OF PAIN AND RECEIVED NO PRN MEDICATIONS. PATIENT REMAINED ON ROOM AIR.
[2022-03-22 06:46] LABS: BASO % 0.4 % (0.0-2.0); EOS # 0.2 K/mm3 (0.0-0.7); EOS % 5.3 % (0.0-4.0); GRAN # 1.4 K/mm3 (1.4-6.5); GRAN % 48.6 % (42.2-75.2); HEMOGLOBIN 10.2 g/dl (12.5-16.0); LYMPH # 0.9 K/mm3 (1.2-3.4); LYMPH % 32.7 % (20.0-51.0); MEAN CELL VOLUME 88 fl (80.0-100.0); MEAN CORPUSCULAR HEMOGLOBIN 29 pg (27-31); MEAN CORPUSCULAR HGB CONC 33 g/dl (33.0-37.0); MEAN PLATELET VOLUME 11.2 fl (7.4-10.4); MONO # 0.4 K/mm3 (0.1-0.6); MONO % 12.3 % (1.7-9.3); PLATELET COUNT 149 K/mm3 (130-400); RED BLOOD COUNT 3.53 M/mm3 (4.10-5.30); REDCELL DISTRIBUTION WIDTH-CV 17.1 % (11.5-14.5)
[2022-03-22 06:50] LABS: HEMATOCRIT 31.1 % (37.0-47.0)
[2022-03-22 06:57] LABS: ALBUMIN 2.3 gm/dL (3.4-4.8); CALCIUM 9.1 mg/dL (8.4-10.2); CREATININE, serum 0.85 mg/dL (0.57-1.11); MAGNESIUM 1.8 mg/dL (1.6-2.6); POTASSIUM 4.4 mmol/L (3.5-4.5)
[2022-03-22 07:58] VITALS: BP 116/63; PULSE 80; TEMP 98.1
--- NOTE | 2022-03-22 10:05 | NUR ---
PATIENT IS A&O TIMES 4. SITTING ON CHAIR EATING BREAKFAST. PT DENIES PAIN. CALL LIGHT WITHIN REACH. PUREWICK IN PLACE. MEPILEX TO LOWER LEFT LEG REPLACED. PATIENT BREATHING ON ROOM AIR, NO SHORTNESS OF BREATH. NO FURTHER NEEDS.
[2022-03-22 10:55] VITALS: BP 128/76; PULSE 99; TEMP 98.1
[2022-03-22 14:47] VITALS: BP 128/76; PULSE 99; TEMP 98.1
--- NOTE | 2022-03-22 14:52 | NUR ---
Glue Reel Operator collaborated with psychological assistant about patient's recent covid infection from January. SW was advised that per CDC, this would not be considered a reinfection. SHAY followed up with Mariam at [facility] who received a copy of patient's test from January. They still cannot accept patient before the ten days. SHAY followed up with Lesvia at [facility] who advised they secured insurance auth and will accept patient today. SHAY contacted patient's daughter, Rosaura who is agreeable to this plan and will pharmacy picking tech patient at 1430. SW provided pharmacy picking tech time to Lesvia. SHAY provided phone numbers for RN report and provider to provider call. Accepting physician is Dr. Jayesh Phillips. Lesvia advised she will print out orders from [facility] [employer] and SHAY does not need to fax them. Discharge Plan: [facility] today
--- NOTE | 2022-03-22 15:28 | NUR ---
Report given to [facility] at this time.
== END 2022-03-22 15:15 | disposition swing bed (61) | DRG 871 ==
LOC: COL.ER 15:00 → MEDICAL 16:54
PROVIDERS: Emergency Medicine; ADMIT Internal Medicine
DX: A41.9 Sepsis, unspecified organism (principal); J18.9 Pneumonia, unspecified organism; J96.01 Acute respiratory failure with hypoxia; U07.1 COVID-19; E87.2 Acidosis; I50.32 Chronic diastolic (congestive) heart failure; N17.9 Acute kidney failure, unspecified; J91.8 Pleural effusion in other conditions classified elsewhere; E87.1 Hypo-osmolality and hyponatremia; Z20.822 Contact with and (suspected) exposure to COVID-19; I27.20 Pulmonary hypertension, unspecified; K21.9 Gastro-esophageal reflux disease without esophagitis; I48.0 Paroxysmal atrial fibrillation; E11.40 Type 2 diabetes mellitus with diabetic neuropathy, unspecified; E78.5 Hyperlipidemia, unspecified; F41.9 Anxiety disorder, unspecified; Z66 Do not resuscitate; I10 Essential (primary) hypertension; B95.1 Streptococcus, group B, as the cause of diseases classified elsewhere; E86.9 Volume depletion, unspecified; E87.70 Fluid overload, unspecified; I08.1 Rheumatic disorders of both mitral and tricuspid valves; Z79.01 Long term (current) use of anticoagulants; Z79.84 Long term (current) use of oral hypoglycemic drugs; Z86.73 Personal history of transient ischemic attack (TIA), and cerebral infarction without residual deficits; Z88.5 Allergy status to narcotic agent; Z88.2 Allergy status to sulfonamides
CPT/HCPCS: OP; G0378; J0692; J0696; J1644; J2405; J3370; J3475; J7040; J7050; J7120

== ENCOUNTER 2022-08-29 19:56 | Emergency (ER) | payer MEDICARE ==
[~2022-08-29] VITALS: Ht 165.1 cm; Wt 62.3 kg
[~2022-08-29 19:56] MED LIST changes: +ATIVAN 0.50.5 MG/TAB PO; +CARAFATE 1GM1 G PO; +DEMADEX 20MG20 M1 PO; +IPRATROPIUM BROM3 M1 IH; +K-TAB20 PO; +NATURAL IRON65 MG PO; +TYLENOL 325MG325 MG PO; +VITAMINC1000TA PO
[2022-08-29 20:06] VITALS: TEMP 97.4
[2022-08-29 22:25] LABS: COLLECTION METHOD CLEAN CATCH
[2022-08-29 22:44] LABS: URINE COLOR Yellow (YELLOW)
[2022-08-29 22:45] LABS: PH 5.5 (5.0-8.5); URINE APPEARANCE Clear (CLEAR/HAZY); URINE BLOOD 1+ (NEGATIVE); URINE GLUCOSE Negative (NEGATIVE); URINE KETONE Negative (NEGATIVE); URINE NITRATE Negative (NEGATIVE); URINE PROTEIN(semi-quant) Negative (NEGATIVE); URINE UROBILINOGEN 0.2 E.U/dL (0.2-1.0)
[2022-08-29 22:46] LABS: URINE BACTERIA Rare /hpf (NONE SEEN)
[2022-08-29 23:09] VITALS: BP 106/67; PULSE 81
== END 2022-08-29 23:12 | disposition home or self-care (01) ==
LOC: COL.ER 19:56
PROVIDERS: Emergency Medicine
DX: S34.101A Unspecified injury to L1 level of lumbar spinal cord, initial encounter (principal); S34.103A Unspecified injury to L3 level of lumbar spinal cord, initial encounter; M51.36 Other intervertebral disc degeneration, lumbar region; M47.816 Spondylosis without myelopathy or radiculopathy, lumbar region; M25.551 Pain in right hip; M25.552 Pain in left hip; I48.0 Paroxysmal atrial fibrillation; Z79.01 Long term (current) use of anticoagulants; W01.0XXA Fall on same level from slipping, tripping and stumbling without subsequent striking against object, initial encounter

== ENCOUNTER 2022-09-16 15:00 | Outpatient (RCR) | payer MEDICARE ==
[2022-09-09 12:30] VITALS: BP 98/54; PULSE 59; TEMP 97.7
[~2022-09-16] VITALS: Ht 165.1 cm; Wt 58.8 kg
[~2022-09-16 15:00] MED LIST changes: +CALCIUM WITH D31 CTB PO; +FERROUSAL325 MG PO; +IMODIUM A-D2 MG PO; +LASIX 80MG TABL80 MG PO; +MASON NATURAL2000 IU PO; +OMEGA-3 FISH1000 MG PO; +PROBIOTIC-10 370 MG PO
[2022-09-16 15:10] VITALS: BP 141/76; PULSE 68; TEMP 98.1
--- NOTE | 2022-09-16 17:05 | NUR ---
RECIEVED PT FROM [facility]. TOOK OVER CARE. PT IS RESTING COMFORTABLY. GAVE PUDDING FOR A SNACK
== END 2022-09-16 17:51 | disposition home or self-care (01) ==
LOC: EUO 15:00
DX: Z79.899 Other long term (current) drug therapy (principal)
CPT/HCPCS: J1756; J7050